=== PATIENT | female | born 1965 | race Caucasian/White ===

== ENCOUNTER → 2016-10-18 | Outpatient (REF) | payer OTHER ==
[~2016-10-18] MED LIST: ATOR1TAB18 PO; BACL-67 PO; DOCU10CA PO; GABA600T PO; MAGN250T3 PO; MILKSUS PO; MIRA3350 PO; NORC10TA2 PO; NORT50CA PO; OMEP20CA3 PO; PAME25CA PO; PERC5TAB6 PO; VARE05TA PO; VITA50003 PO
[2016-10-18 11:53] LABS: ALBUMIN 3.5 GM/DL (3.2-5.2); ALBUMIN/GLOBULIN RATIO 1.13 (1.00-1.93); ALKALINE PHOSPHATASE 85 U/L (45-117); ALT/SGPT 68 U/L (12-78); ANION GAP 8 MEQ/L (8-16); AST/SGOT 31 U/L (15-37); BILIRUBIN,TOTAL 0.3 MG/DL (0.2-1.0); BLOOD UREA NITROGEN 11 MG/DL (7-18); CARBON DIOXIDE LEVEL 29 MEQ/L (21-32); CHLORIDE LEVEL 105 MEQ/L (98-107); CHOLESTEROL LEVEL 269 MG/DL (<200); CREATININE FOR GFR 0.64 MG/DL (0.55-1.02); GLOMERULAR FILTRATION RATE > 60.0 (>58); GLUCOSE, FASTING 84 MG/DL (70-105); POTASSIUM SERUM 4.3 MEQ/L (3.5-5.1); SODIUM LEVEL 142 MEQ/L (136-145); TOTAL PROTEIN 6.6 GM/DL (6.4-8.2); TRIGLYCERIDES LEVEL 238 MG/DL (<150)
== END ==
LOC: M SFHCPLAZ 08:35
PROVIDERS: ATTEND Nurse Practitioner Family
DX: E78.2 Mixed hyperlipidemia (principal); E55.9 Vitamin D deficiency, unspecified

== ENCOUNTER → 2016-11-24 | Outpatient (CLI) | payer OTHER ==
--- NOTE | 2016-11-24 15:22 | REP ---
MR CERVICAL SPINE WITHOUT CONTRAST: HISTORY: Cervicalgia. COMPARISON: 09/19/2014. A disc bulge is present at the C3-4 level. There is minimal effacement of the thecal sac without spinal cord compression. Uncinate process hypertrophy is present on the left. This produces minimal narrowing of the left C3 neural foramen. The right C3 neural foramen is patent. A disc bulge is present at the C4-5 level. The previously noted left paracentral disc protrusion is not seen. There is minimal effacement of the thecal sac without spinal cord compressions. Uncinate process hypertrophy is present on the left. This produces minimal narrowing of the left C4 neural foramen. The right C4 neural foramen is patent. There is no other disc bulge or herniation. The remaining neural foramina are patent. The spinal cord is normal in signal intensity. Normal signal intensity is present in the cervical vertebral bodies. IMPRESSION: There is cervical spondylosis at the C3-4 and C4-5 levels without spinal cord compression. There is no significant change compared to the previous study. Signed by Kip Ramos MD 11/24/2016 03:27 P
== END ==
LOC: M RAD 13:28
PROVIDERS: ATTEND Physician Assistant Medical
DX: M54.2 Cervicalgia (principal); M47.892 Other spondylosis, cervical region

== ENCOUNTER → 2017-04-06 | Outpatient (CLI) | payer OTHER ==
[~2017-04-06] MED LIST changes: -ATOR1TAB18 PO; +ATOR80TA59 PO; -BACL-67 PO; +BACL1TAB9 PO; -NORC10TA2 PO; +NORC10TA21 PO; +PERC5TAB12 PO; -PERC5TAB6 PO; +VITA1CAP40 PO; -VITA50003 PO
[2017-04-06 10:14] LABS: BASO % 0.5 % (0.0-1.0); EOS # 0.4 K/mm3 (0.0-0.50); EOS % 3.9 % (0.0-3.0); LARGE UNSTAINED CELL # 0.1 K/mm3 (0.0-0.4); LARGE UNSTAINED CELL % 1.1 % (0.0-4.0); LYMPH # 1.8 K/mm3 (1.5-4.5); LYMPH % 17.1 % (24.0-44.0); MEAN CORPUSCULAR HEMOGLOBIN 32.4 pg (27.0-33.0); MEAN CORPUSCULAR HGB CONC 34.3 g/dl (32.0-36.5); MEAN CORPUSCULAR VOLUME 94.3 fl (80.0-96.0); MONO # 0.4 K/mm3 (0.0-0.8); MONO % 4.1 % (0.0-5.0); NEUTROPHILS # 7.6 K/mm3 (1.8-7.7); NEUTROPHILS % 73.3 % (36.0-66.0); PLATELET COUNT, AUTOMATED 385 k/mm3 (150-450); RED CELL DISTRIBUTION WIDTH 12.8 % (11.5-14.5); WHITE BLOOD COUNT 10.4 K/mm3 (4.0-10.0)
[2017-04-06 11:06] LABS: ERYTHROCYTE SEDIMENTATION RATE 3 mm/hr (0-20)
[2017-04-08 00:06] LABS: Lyme Disease IgG/IgM Antibodie <0.91 ISR (0.00-0.90); Lyme Disease IgM Ab Quantitati <0.80 index (0.00-0.79)
== END ==
LOC: M LAB 08:31
PROVIDERS: ATTEND Physician Assistant Medical
DX: R51 Headache (principal); M25.50 Pain in unspecified joint

== ENCOUNTER → 2017-04-26 | Outpatient (REF) | payer OTHER ==
[2017-04-26 12:19] LABS: ALBUMIN 3.6 GM/DL (3.2-5.2); ALBUMIN/GLOBULIN RATIO 1.24 (1.00-1.93); ALKALINE PHOSPHATASE 117 U/L (45-117); ALT/SGPT 109 U/L (12-78); ANION GAP 4 MEQ/L (8-16); AST/SGOT 17 U/L (15-37); BILIRUBIN,TOTAL 0.3 MG/DL (0.2-1.0); BLOOD UREA NITROGEN 9 MG/DL (7-18); CALCIUM LEVEL 8.6 MG/DL (8.5-10.1); CARBON DIOXIDE LEVEL 28 MEQ/L (21-32); CHLORIDE LEVEL 109 MEQ/L (98-107); CHOLESTEROL LEVEL 124 MG/DL (<200); CREATININE FOR GFR 0.69 MG/DL (0.55-1.02); GLOMERULAR FILTRATION RATE > 60.0 (>58); GLUCOSE, FASTING 86 MG/DL (70-105); POTASSIUM SERUM 4.4 MEQ/L (3.5-5.1); SODIUM LEVEL 141 MEQ/L (136-145); TOTAL PROTEIN 6.5 GM/DL (6.4-8.2); TRIGLYCERIDES LEVEL 84 MG/DL (<150)
== END ==
LOC: M SFHCPLAZ 08:39
PROVIDERS: ATTEND Nurse Practitioner Family
DX: E78.2 Mixed hyperlipidemia (principal); Z11.59 Encounter for screening for other viral diseases; Z11.4 Encounter for screening for human immunodeficiency virus [HIV]; W57.XXXD Bitten or stung by nonvenomous insect and other nonvenomous arthropods, subsequent encounter; E55.9 Vitamin D deficiency, unspecified

== ENCOUNTER → 2017-06-19 | Outpatient (REF) | payer OTHER ==
[2017-06-19 12:31] LABS: BASO # 0.1 10^3/uL (0.0-0.2); BASO % 0.6 % (0.0-1.0); EOS # 0.8 10^3/uL (0.0-0.50); EOS % 5.6 % (0.0-3.0); IMMATURE GRANULOCYTE % 0.3 % (0-0); LYMPH # 3.7 10^3/uL (1.5-4.5); LYMPH % 25.3 % (24.0-44.0); MEAN CORPUSCULAR HEMOGLOBIN 31.7 pg (27.0-33.0); MEAN CORPUSCULAR HGB CONC 33.9 g/dl (32.0-36.5); MEAN CORPUSCULAR VOLUME 93.6 fl (80.0-96.0); MONO # 0.9 10^3/uL (0.0-0.8); MONO % 6.5 % (0.0-5.0); NEUTROPHILS # 8.9 10^3/uL (1.8-7.7); NEUTROPHILS % 61.7 % (36.0-66.0); PLATELET COUNT, AUTOMATED 446 10^3/uL (150-450); WHITE BLOOD COUNT 14.4 10^3/uL (4.0-10.0)
[2017-06-19 13:06] LABS: ALBUMIN 3.5 GM/DL (3.2-5.2); ALBUMIN/GLOBULIN RATIO 1.09 (1.00-1.93); ALKALINE PHOSPHATASE 145 U/L (45-117); ALT/SGPT 183 U/L (12-78); ANION GAP 8 MEQ/L (8-16); AST/SGOT 21 U/L (7-37); BILIRUBIN,TOTAL 0.2 MG/DL (0.2-1.0); BLOOD UREA NITROGEN 8 MG/DL (7-18); CALCIUM LEVEL 9.3 MG/DL (8.5-10.1); CARBON DIOXIDE LEVEL 29 MEQ/L (21-32); CHLORIDE LEVEL 106 MEQ/L (98-107); CHOLESTEROL LEVEL 187 MG/DL (<200); CREATININE FOR GFR 0.66 MG/DL (0.55-1.02); GLOMERULAR FILTRATION RATE > 60.0 (>58); GLUCOSE, FASTING 86 MG/DL (70-105); SODIUM LEVEL 143 MEQ/L (136-145); TOTAL PROTEIN 6.7 GM/DL (6.4-8.2); TRIGLYCERIDES LEVEL 218 MG/DL (<150)
== END ==
LOC: M SFHCPLAZ 09:15
PROVIDERS: ATTEND Nurse Practitioner Family
DX: R40.0 Somnolence (principal); E78.2 Mixed hyperlipidemia; E55.9 Vitamin D deficiency, unspecified

== ENCOUNTER → 2017-06-28 | Outpatient (REF) | payer OTHER ==
[2017-06-28 11:28] LABS: BASO # 0.1 10^3/uL (0.0-0.2); BASO % 0.8 % (0.0-1.0); EOS # 0.5 10^3/uL (0.0-0.50); EOS % 4.1 % (0.0-3.0); IMMATURE GRANULOCYTE % 0.4 % (0-0); LYMPH # 3.5 10^3/uL (1.5-4.5); LYMPH % 29.8 % (24.0-44.0); MEAN CORPUSCULAR HEMOGLOBIN 31.4 pg (27.0-33.0); MEAN CORPUSCULAR VOLUME 95.1 fl (80.0-96.0); MONO # 0.8 10^3/uL (0.0-0.8); MONO % 7.1 % (0.0-5.0); NEUTROPHILS # 6.7 10^3/uL (1.8-7.7); NEUTROPHILS % 57.8 % (36.0-66.0); PLATELET COUNT, AUTOMATED 379 10^3/uL (150-450); RED CELL DISTRIBUTION WIDTH 14.1 % (11.5-14.5); WHITE BLOOD COUNT 11.6 10^3/uL (4.0-10.0)
[2017-06-28 11:42] LABS: ALBUMIN 3.6 GM/DL (3.2-5.2); ALBUMIN/GLOBULIN RATIO 1.24 (1.00-1.93); ALKALINE PHOSPHATASE 109 U/L (45-117); ALT/SGPT 60 U/L (12-78); AST/SGOT 16 U/L (7-37); BILIRUBIN,DIRECT < 0.1 MG/DL (0.0-0.2); BILIRUBIN,TOTAL 0.3 MG/DL (0.2-1.0); TOTAL PROTEIN 6.5 GM/DL (6.4-8.2)
[2017-06-28 11:54] LABS: ERYTHROCYTE SEDIMENTATION RATE 3 mm/hr (0-20)
== END ==
LOC: M SFHCLERA 08:31
PROVIDERS: ATTEND Nurse Practitioner Family
DX: G44.89 Other headache syndrome (principal); R79.89 Other specified abnormal findings of blood chemistry

== ENCOUNTER → 2018-05-13 | Outpatient (REF) | payer OTHER ==
[2018-05-13 12:49] LABS: ALBUMIN 3.2 GM/DL (3.2-5.2); ALBUMIN/GLOBULIN RATIO 1.07 (1.00-1.93); ALKALINE PHOSPHATASE 87 U/L (45-117); ALT/SGPT 43 U/L (12-78); ANION GAP 7 MEQ/L (8-16); AST/SGOT 17 U/L (7-37); BILIRUBIN,TOTAL 0.3 MG/DL (0.2-1.0); BLOOD UREA NITROGEN 8 MG/DL (7-18); CALCIUM LEVEL 8.5 MG/DL (8.5-10.1); CARBON DIOXIDE LEVEL 27 MEQ/L (21-32); CHLORIDE LEVEL 109 MEQ/L (98-107); CHOLESTEROL LEVEL 263 MG/DL (<200); CHOLESTEROL RISK RATIO 5.479 (<5); CREATININE FOR GFR 0.75 MG/DL (0.55-1.30); GLOMERULAR FILTRATION RATE > 60.0 (>51); GLUCOSE, FASTING 81 MG/DL (70-100); HDL CHOLESTEROL 48 MG/DL (>40); LDL CHOLESTEROL 192 MG/DL (<100); NON-HDL-C 215 MG/DL; POTASSIUM SERUM 4.4 MEQ/L (3.5-5.1); SODIUM LEVEL 143 MEQ/L (136-145); TOTAL PROTEIN 6.2 GM/DL (6.4-8.2); TRIGLYCERIDES LEVEL 114 MG/DL (<150)
== END ==
LOC: M SFHCPLAZ 08:00
DX: E78.2 Mixed hyperlipidemia (principal); E55.9 Vitamin D deficiency, unspecified
CPT/HCPCS: 80053

== ENCOUNTER → 2018-10-25 | Outpatient (CLI) | payer OTHER ==
[~2018-10-25] MED LIST changes: -GABA600T PO; +GABA600T4 PO; +MILK120011 PO; -MILKSUS PO; -NORC10TA21 PO; +NORC1TAB5 PO; -VITA1CAP40 PO; +VITA50005 PO
--- NOTE | 2018-10-25 14:14 | REP ---
MR CERVICAL SPINE WITHOUT CONTRAST: HISTORY: Cervicalgia. COMPARISON: 11/24/2016 A disc bulge and small left paracentral disc protrusion are present at the C3-4 level. There is minimal effacement of the thecal sac without spinal cord compression. Uncinate process hypertrophy is present on the left. This produces minimal narrowing of the left C3 neural foramen. The right C3 neural foramen is patent. A disc bulge and small left paracentral disc protrusion are present at the C4-5 level. There is minimal effacement of the thecal sac without spinal cord compression. Uncinate process hypertrophy is present on the left. This produces mild narrowing of the left C4 neural foramen. The right C4 neural foramen is patent. There is no other disc bulge or herniation. The remaining foramen are patent. The spinal cord is normal in signal intensity. Normal signal intensity is present in the cervical vertebral bodies. IMPRESSION: There is cervical spondylosis at the C3-4 and C4-5 levels without spinal cord compression. The disc protrusions at the C3-4 and C4-5 levels are new. There has been progression of the foraminal narrowing on the left at the C4-5 level. Electronically Signed by Kip Ramos MD 10/25/2018 02:44 P
== END ==
LOC: M PLARAD 10:28
PROVIDERS: ATTEND Physician Assistant Medical
DX: M50.21 Other cervical disc displacement, high cervical region (principal); M50.221 Other cervical disc displacement at C4-C5 level; M47.892 Other spondylosis, cervical region; R20.2 Paresthesia of skin

== ENCOUNTER → 2019-02-27 | Outpatient (REF) | payer OTHER ==
[~2019-02-27] MED LIST changes: -OMEP20CA3 PO; +OMEP20CA4 PO
[2019-03-01 14:10] LABS: HPV HYBRID CAPTURE II Negative (Negative)
== END ==
LOC: M SFHCWAGY 11:46
PROVIDERS: ATTEND Nurse Practitioner Women's Health
DX: Z12.4 Encounter for screening for malignant neoplasm of cervix (principal)

== ENCOUNTER → 2019-02-27 | Outpatient (CLI) | payer OTHER ==
--- NOTE | 2019-02-27 13:27 | REPMRS ---
Patient History The patient states she had a clinical breast exam in 02/2019. Patient has history of other cancer at age 50. No known family history of cancer. No Hormone Replacement Therapy 3D TOMOSYNTHESIS WAS PERFORMED. [facility] lifetime risk for breast cancer is 8.5%. Digital Woman Screen Mammo: February 27, 2019 - Exam #: [id number] Bilateral CC and MLO view(s) were taken. Technologist: Alana Lorenzana, Technologist Prior study comparison: May 25, 2016, digital woman screen mammo performed at [facility]. March 27, 2014, digital mammo diagnostic bilateral, performed at [facility]. FINDINGS: The breast tissue is heterogeneously dense. This may lower the sensitivity of mammography. There has been no change in the appearance of the mammogram from the prior studies. There is a moderate amount of residual fibroglandular tissue which is fairly symmetric. There is no interval development of dominant mass, areas of architectural distortion, or clustered microcalcification typical of malignancy. Assessment: BI-RADS/ACR category 1 mammogram. Negative Mammogram. Recommendation Routine screening mammogram in 1 year (for women over age 40). This mammogram was interpreted with the aid of an FDA-approved computer-aided dectection system. Electronically Signed By: Floyd Magana MD 02/27/19 [id number]
== END ==
LOC: M WHC 11:41
PROVIDERS: ATTEND Nurse Practitioner Women's Health
DX: Z12.31 Encounter for screening mammogram for malignant neoplasm of breast (principal); Z85.89 Personal history of malignant neoplasm of other organs and systems

== ENCOUNTER → 2020-01-14 | Outpatient (REF) | payer OTHER ==
[~2020-01-14] MED LIST changes: +CIPR-249 PO; +DRIS50003 PO; +FLAG500T PO; +GABA800T4 PO; +METH750T2 PO; +NEUR800T PO; +OMEP1CAP73 PO; -OMEP20CA4 PO; +SUMA50TA2 PO
[2020-01-14 15:36] LABS: ALBUMIN 3.8 GM/DL (3.2-5.2); ALT/SGPT 42 U/L (12-78); BILIRUBIN,TOTAL 0.3 MG/DL (0.2-1.0); BLOOD UREA NITROGEN 7 MG/DL (7-18); CALCIUM LEVEL 9.6 MG/DL (8.5-10.1); CARBON DIOXIDE LEVEL 29 MEQ/L (21-32); CHLORIDE LEVEL 107 MEQ/L (98-107); CHOLESTEROL LEVEL 310 MG/DL (<200); CREATININE FOR GFR 0.75 MG/DL (0.55-1.30); FREE T4 0.88 NG/DL (0.76-1.46); GLOMERULAR FILTRATION RATE > 60.0 (>51); GLUCOSE, FASTING 81 MG/DL (70-100); HDL CHOLESTEROL 50 MG/DL (>40); LDL CHOLESTEROL 227 MG/DL (<100); MAGNESIUM LEVEL 2.1 MG/DL (1.8-2.4); NON-HDL-C 260 MG/DL; POTASSIUM SERUM 4.4 MEQ/L (3.5-5.1); SODIUM LEVEL 139 MEQ/L (136-145); THYROID STIMULATING HORMONE 0.914 uIU/ML (0.358-3.740); TOTAL 25(OH) VITAMIN D 23.1 NG/ML (30.0-100.0); TOTAL PROTEIN 6.9 GM/DL (6.4-8.2); TRIGLYCERIDES LEVEL 167 MG/DL (<150)
== END ==
LOC: M SFHCPLAZ 12:45
PROVIDERS: ATTEND Nurse Practitioner Family
DX: E78.2 Mixed hyperlipidemia (principal); K21.9 Gastro-esophageal reflux disease without esophagitis; E55.9 Vitamin D deficiency, unspecified

== ENCOUNTER 2020-03-02 12:57 | Emergency (ER) | payer OTHER ==
[~2020-03-02 12:57] MED LIST changes: -CIPR-249 PO; -DRIS50003 PO; -FLAG500T PO; -GABA800T4 PO; -METH750T2 PO; -NEUR800T PO; -SUMA50TA2 PO
[2020-04-17 07:49] LABS: BASO % 0.4 % (0.0-1.0); EOS # 0.4 10^3/uL (0.0-0.5); HEMATOCRIT 50.2 % (36.0-47.0); HEMOGLOBIN 16.8 g/dl (12.0-15.5); LYMPH # 3.6 10^3/uL (1.5-5.0); LYMPH % 34.4 % (24.0-44.0); MEAN CORPUSCULAR HEMOGLOBIN 31.4 pg (27.0-33.0); MEAN CORPUSCULAR HGB CONC 33.5 g/dl (32.0-36.5); MEAN CORPUSCULAR VOLUME 93.8 fl (80.0-96.0); MONO # 0.6 10^3/uL (0.0-0.8); NEUTROPHILS # 5.8 10^3/uL (1.5-8.5); NEUTROPHILS % 54.9 % (36.0-66.0); PLATELET COUNT, AUTOMATED 349 10^3/uL (150-450); RED BLOOD COUNT 5.35 10^6/uL (4.00-5.40); WHITE BLOOD COUNT 10.5 10^3/uL (4.0-10.0)
[2020-04-17 07:52] LABS: INR 0.91; PARTIAL THROMBOPLASTIN TIME 36.3 SECONDS (24.2-38.5); PROTHROMBIN TIME 12.4 SECONDS (12.5-14.3)
== END 2020-03-02 16:40 | disposition home or self-care (01) ==
LOC: M ED 12:57
DX: M17.11 Unilateral primary osteoarthritis, right knee (principal); M71.21 Synovial cyst of popliteal space [Baker], right knee; K21.9 Gastro-esophageal reflux disease without esophagitis; F17.210 Nicotine dependence, cigarettes, uncomplicated; Z88.1 Allergy status to other antibiotic agents; Z79.899 Other long term (current) drug therapy

== ENCOUNTER → 2020-03-02 | Outpatient (REF) | payer OTHER | LOC: M SFHCWAGY 11:32 | PROVIDERS: ATTEND Nurse Practitioner Women's Health | DX: Z12.4 Encounter for screening for malignant neoplasm of cervix (principal) ==

== ENCOUNTER → 2020-03-02 | Outpatient (CLI) | payer OTHER ==
--- NOTE | 2020-03-18 16:59 | REPMRS ---
Patient History The patient states she had a clinical breast exam in 02/2020. Patient has history of other cancer at age 50. No known family history of cancer. No Hormone Replacement Therapy Digital Woman Screen Mammo: March 02, 2020 - Exam #: [id number] Bilateral CC and MLO view(s) were taken. Technologist: Kaylen Mcbride Technologist Prior study comparison: February 27, 2019, bilateral digital woman screen mammo performed at [facility]. May 25, 2016, digital woman screen mammo performed at [facility]. March 27, 2014, digital mammo diagnostic bilateral, performed at [facility]. FINDINGS: The breast tissue is heterogeneously dense. This may lower the sensitivity of mammography. The Volpara volumetric breast density category is: C. There is a moderate amount of heterogeneously dense fibroglandular tissue which is fairly symmetric. There is no interval development of dominant mass, architectural distortion, or grouped microcalcification typical of malignancy. There has been no change in the appearance of the mammogram from the prior studies. 3-D tomosynthesis shows no additional findings. Assessment: BI-RADS/ACR category 1 mammogram. Negative Mammogram. Recommendation Routine screening mammogram of both breasts in 1 year (for women over age 40). This patient's Lifetime Breast Cancer RIsk is estimated at 8.3 %. This mammogram was interpreted with the aid of an FDA-approved computer-aided dectection system. Electronically Signed By: Ramón Major MD 03/18/20 [id number]
== END ==
LOC: M WHC 11:17
PROVIDERS: ATTEND Nurse Practitioner Women's Health
DX: Z12.31 Encounter for screening mammogram for malignant neoplasm of breast (principal)

== ENCOUNTER → 2020-03-12 | Outpatient (CLI) | payer OTHER ==
[~2020-03-12] MED LIST changes: +CIPR-249 PO; +DRIS50003 PO; +FLAG500T PO; +GABA800T4 PO; +METH750T2 PO; +NEUR800T PO; +SUMA50TA2 PO
== END ==
LOC: M LABSMTC 13:30
PROVIDERS: ATTEND Anesthesiology
DX: Z01.812 Encounter for preprocedural laboratory examination (principal); Z11.59 Encounter for screening for other viral diseases

== ENCOUNTER 2020-03-17 11:47 | Day surgery (SDC) | payer OTHER ==
[~2020-03-17] VITALS: Ht 175.3 cm; Wt 102.4 kg
[~2020-03-17 11:47] MED LIST changes: -CIPR-249 PO; -DRIS50003 PO; -FLAG500T PO; -GABA800T4 PO; +LIDOCAINE 2% 100MG/5ML SDV (FOR ANES.) As Ordered ONE; -METH750T2 PO; -NEUR800T PO; -SUMA50TA2 PO; +propofoL 200 MG/20 ML VIAL As Ordered ONE
[2020-03-17] MEDS ORDERED: NS 1,000 ML IV ONE (13:00)
[2020-03-17 13:30] VITALS: BP 130/89
--- NOTE | 2020-03-31 11:36 | ROOR ---
Patient Name: Jyoti Alcala Procedure Date: 03/17/2020 12:48 PM Date of : 1965 Age: 54 Room: [facility] Gender: Female Note Status: Finalized Procedure: Total Colonoscopy to Cecum Indications: High risk colon cancer surveillance: Personal history of colonic polyps Providers: Sudhakar Lackey MD Referring MD: Shanon Aguirre NP Requesting Provider: Medicines: Monitored Anesthesia Care Complications: No immediate complications. Procedure: Pre-Anesthesia Assessment: - The heart rate, respiratory rate, oxygen saturations, blood pressure, adequacy of pulmonary ventilation, and response to care were monitored throughout the procedure. The Colonoscope was introduced through the anus and advanced to the cecum, identified by appendiceal orifice and ileocecal valve. The colonoscopy was performed without difficulty. The patient tolerated the procedure well. The quality of the bowel preparation was good. Findings: The perianal and digital rectal examinations were normal. Non-bleeding internal hemorrhoids were found during retroflexion. The hemorrhoids were small and Grade I (internal hemorrhoids that do not prolapse). Multiple small and large-mouthed diverticula were found in the recto-sigmoid colon, sigmoid colon and descending colon. The exam was otherwise without abnormality on direct and retroflexion views. Impression: - Non-bleeding internal hemorrhoids. - Diverticulosis in the recto-sigmoid colon, in the sigmoid colon and in the descending colon. - The examination was otherwise normal on direct and retroflexion views. - No specimens collected. - The exam was otherwise normal to the cecum. Recommendation: - Patient has a contact number available for emergencies. The signs and symptoms of potential delayed complications were discussed with the patient. Return to normal activities tomorrow. Written discharge instructions were provided to the patient. - High fiber diet. - Discharge patient to home. - Continue present medications. - Repeat colonoscopy in 5 years for surveillance. - Return to referring physician. - The findings and recommendations were discussed with the patient. Sudhakar Lackey MD 03/17/2020 1:10:53 PM Number of Addenda: 0 Note Initiated On: 03/17/2020 12:48 PM Estimated Blood Loss: Estimated blood loss: none.
== END 2020-03-17 13:52 | disposition home or self-care (01) ==
LOC: M OPP 11:47
PROVIDERS: ATTEND Internal Medicine Gastroenterology
DX: Z12.11 Encounter for screening for malignant neoplasm of colon (principal); Z86.010 Personal history of colon polyps; K64.0 First degree hemorrhoids; K57.30 Diverticulosis of large intestine without perforation or abscess without bleeding; G47.30 Sleep apnea, unspecified; F17.210 Nicotine dependence, cigarettes, uncomplicated; Z79.899 Other long term (current) drug therapy; Z88.1 Allergy status to other antibiotic agents; Z88.8 Allergy status to other drugs, medicaments and biological substances; Z91.048 Other nonmedicinal substance allergy status

== ENCOUNTER → 2020-05-13 | Outpatient (REF) | payer OTHER ==
[~2020-05-13] MED LIST changes: +CIPR-249 PO; +DRIS50003 PO; +FLAG500T PO; +GABA800T4 PO; -LIDOCAINE 2% 100MG/5ML SDV (FOR ANES.) As Ordered ONE; +METH750T2 PO; +NEUR800T PO; +SUMA50TA2 PO; -propofoL 200 MG/20 ML VIAL As Ordered ONE
[2020-05-13 13:38] LABS: APPEARANCE, URINE CLEAR (CLEAR); BACTERIA, URINE AUTO NEGATIVE (NEGATIVE); BILIRUBIN, URINE AUTO NEGATIVE (NEGATIVE); BLOOD, URINE BLOOD 3+ (NEGATIVE); COLOR, URINE STRAW (YELLOW); GLUCOSE, URINE (UA) AUTO NEGATIVE (NEGATIVE); KETONE, URINE AUTO NEGATIVE (NEGATIVE); LEUKOCYTE ESTERASE, URINE AUTO TRACE (NEGATIVE); NITRITE, URINE AUTO NEGATIVE (NEGATIVE); PROTEIN, URINE AUTO NEGATIVE (NEGATIVE); RBC, URINE AUTO 7 /HPF (0-3); SPECIFIC GRAVITY URINE AUTO 1.002 (1.002-1.035); SQUAMOUS EPITHELIAL CELL UR AU 0 /HPF (0-6); UROBILINOGEN, URINE AUTO 0.2 mg/dL (0.0-2.0); WBC, URINE AUTO 4 /HPF (0-3)
== END ==
LOC: M SFHCPLAZ 12:50
PROVIDERS: ATTEND Family Medicine
DX: R30.0 Dysuria (principal)

== ENCOUNTER → 2020-05-14 | Outpatient (REF) | payer OTHER ==
[2020-05-14 18:56] LABS: AMORPHOUS SEDIMENT SMALL (NEGATIVE); APPEARANCE, URINE CLOUDY (CLEAR); BACTERIA, URINE AUTO NEGATIVE (NEGATIVE); BILIRUBIN, URINE AUTO NEGATIVE (NEGATIVE); BLOOD, URINE BLOOD 2+ (NEGATIVE); CALCIUM OXALATE CRYSTALS MODERATE; COLOR, URINE YELLOW (YELLOW); GLUCOSE, URINE (UA) AUTO NEGATIVE (NEGATIVE); KETONE, URINE AUTO TRACE mg/dL (NEGATIVE); LEUKOCYTE ESTERASE, URINE AUTO 3+ (NEGATIVE); MUCUS, URINE SMALL (NEGATIVE); NITRITE, URINE AUTO NEGATIVE (NEGATIVE); PROTEIN, URINE AUTO 2+ mg/dL (NEGATIVE); RBC, URINE AUTO TNTC /HPF (0-3); SPECIFIC GRAVITY URINE AUTO 1.021 (1.002-1.035); SQUAMOUS EPITHELIAL CELL UR AU 1 /HPF (0-6); UROBILINOGEN, URINE AUTO 0.2 mg/dL (0.0-2.0); WBC, URINE AUTO 40 /HPF (0-3)
== END ==
LOC: M SMT 17:29
PROVIDERS: ATTEND Nurse Practitioner Women's Health
DX: R30.0 Dysuria (principal)

== ENCOUNTER 2020-05-24 12:08 | Emergency (ER) | payer OTHER ==
[~2020-05-24] VITALS: Ht 175.3 cm; Wt 101.0 kg
[~2020-05-24 12:08] MED LIST changes: -CIPR-249 PO; -DRIS50003 PO; -FLAG500T PO; -GABA800T4 PO; -METH750T2 PO; -NEUR800T PO; -SUMA50TA2 PO
[2020-05-24] MEDS ORDERED: METH750T2 PO (12:16)
[2020-05-24] MEDS ORDERED: KETOROLAC 30 MG/ML 1ML VIAL IV ONE (13:15)
--- NOTE | 2020-05-24 13:37 | REP ---
INDICATION: left pelvic pain; hx of stone COMPARISON: Comparison CT study abdomen pelvis October 08, 2014.. TECHNIQUE: Helical scanning is acquired in 4 mm axial images were reformatted. Coronal and sagittal MPR images were generated and reviewed. FINDINGS: Preliminary digital microfilm camera operator radiograph shows clips in right upper quadrant. Bowel gas pattern is normal. There appears to be a surgical suture in the pelvis on the right side as well. The lung bases are clear on axial CT images. The liver and the spleen are normal in size homogeneous in texture. There is a stable low-density left adrenal lesion measuring 2.9 cm in greatest diameter. This measured 2.4 cm in 2015. No right adrenal lesion is seen. The left adrenal lesion has a mean Hounsfield unit density of -18 Hounsfield units consistent with benign adenoma. There is mild left-sided hydronephrosis and hydroureter. No ureteral or intrarenal calculus is seen on either side. No bladder calculus is observed. Vascular calcification is noted in the iliac arteries bilaterally. No retroperitoneal mass or adenopathy is seen. There is sigmoid colon diverticulosis in there is mural thickening and Bernie colonic edema associated with the sigmoid colon deep in the left pelvis. This is compatible with acute diverticulitis. There is no evidence of abscess or free air. The course of the left distal ureter is near this and no other cause for the hydronephrosis is seen. Uterus is tipped somewhat to the right. No ovarian abnormality is seen. Urinary bladder is intact. No abdominal wall defect or bony destructive lesion is appreciated. IMPRESSION: 1. Findings consistent with acute mild diverticulitis sigmoid colon without evidence of abscess or free air. 2. Mild left-sided hydronephrosis and hydroureter. No ureteral calculus seen. No urinary tract calculus noted. 3. Post cholecystectomy and ventral hernia repair. 4. There is a benign left adrenal adenoma currently measuring 2.9 cm in greatest diameter. 5. The appendix and right ovary are surgically absent by history. <Electronically signed by Ramón Major > 05/24/20 [id number]
[2020-05-24 13:39] LABS: BASO # 0.1 10^3/uL (0.0-0.2); BASO % 0.5 % (0.0-1.0); EOS # 0.5 10^3/uL (0.0-0.5); HEMATOCRIT 47.5 % (36.0-47.0); HEMOGLOBIN 15.2 g/dl (12.0-15.5); LYMPH # 3.4 10^3/uL (1.5-5.0); LYMPH % 25.5 % (24.0-44.0); MEAN CORPUSCULAR HEMOGLOBIN 30.2 pg (27.0-33.0); MEAN CORPUSCULAR VOLUME 94.2 fl (80.0-96.0); MONO # 0.8 10^3/uL (0.0-0.8); MONO % 6.2 % (0.0-5.0); NEUTROPHILS # 8.5 10^3/uL (1.5-8.5); NEUTROPHILS % 63.5 % (36.0-66.0); PLATELET COUNT, AUTOMATED 288 10^3/uL (150-450); RED BLOOD COUNT 5.04 10^6/uL (4.00-5.40); WHITE BLOOD COUNT 13.3 10^3/uL (4.0-10.0)
[2020-05-24] MEDS ORDERED: CIPR-249 PO (15:01)
[2020-05-24] MEDS ORDERED: FLAG500T PO (15:01)
[2020-05-24 15:17] VITALS: BP 110/70
[2020-05-24 15:32] LABS: BLOOD UREA NITROGEN 9 MG/DL (7-18); CALCIUM LEVEL 9.1 MG/DL (8.5-10.1); CARBON DIOXIDE LEVEL 28 MEQ/L (21-32); CHLORIDE LEVEL 109 MEQ/L (98-107); CREATININE FOR GFR 0.69 MG/DL (0.55-1.30); GLOMERULAR FILTRATION RATE > 60.0 (>51); GLUCOSE, FASTING 78 MG/DL (70-100); POTASSIUM SERUM 4.6 MEQ/L (3.5-5.1); SODIUM LEVEL 143 MEQ/L (136-145)
== END 2020-05-24 15:19 | disposition home or self-care (01) ==
LOC: M ED 12:08
DX: K57.32 Diverticulitis of large intestine without perforation or abscess without bleeding (principal); N13.30 Unspecified hydronephrosis; D35.02 Benign neoplasm of left adrenal gland; M79.7 Fibromyalgia; F17.200 Nicotine dependence, unspecified, uncomplicated; Z88.1 Allergy status to other antibiotic agents; Z91.048 Other nonmedicinal substance allergy status; Z79.899 Other long term (current) drug therapy
CPT/HCPCS: 74176; 80047; 80048; 81001; 85025; 96374; 99284; J1885

== ENCOUNTER 2020-05-27 13:22 | Inpatient (IN) | payer OTHER ==
[~2020-05-27] VITALS: Ht 175.3 cm; Wt 100.7 kg
[~2020-05-27 13:22] MED LIST changes: +CIPR-249 PO; +FLAG500T PO; +METH750T2 PO
[2020-05-27] MEDS ORDERED: NS 1,000 ML IV ONE (14:15)
[2020-05-27 14:35] LABS: BASO # 0.1 10^3/uL (0.0-0.2); BASO % 0.5 % (0.0-1.0); EOS # 0.4 10^3/uL (0.0-0.5); EOS % 3.3 % (0.0-3.0); HEMATOCRIT 46.3 % (36.0-47.0); HEMOGLOBIN 15.2 g/dl (12.0-15.5); LYMPH # 2.6 10^3/uL (1.5-5.0); MEAN CORPUSCULAR HEMOGLOBIN 30.2 pg (27.0-33.0); MEAN CORPUSCULAR HGB CONC 32.8 g/dl (32.0-36.5); MEAN CORPUSCULAR VOLUME 91.9 fl (80.0-96.0); MONO # 0.9 10^3/uL (0.0-0.8); MONO % 7.4 % (0.0-5.0); NEUTROPHILS # 8.3 10^3/uL (1.5-8.5); NEUTROPHILS % 67.5 % (36.0-66.0); PLATELET COUNT, AUTOMATED 290 10^3/uL (150-450); RED BLOOD COUNT 5.04 10^6/uL (4.00-5.40); WHITE BLOOD COUNT 12.2 10^3/uL (4.0-10.0)
[2020-05-27] MEDS ORDERED: ISOVUE-370 76% 100ML VIAL As Ordered ONE (14:54)
[2020-05-27 15:11] LABS: ALBUMIN 3.4 GM/DL (3.2-5.2); ALT/SGPT 48 U/L (12-78); BILIRUBIN,DIRECT < 0.1 MG/DL (0.0-0.2); BILIRUBIN,TOTAL 0.5 MG/DL (0.2-1.0); LIPASE 353 U/L (73-393); TOTAL PROTEIN 6.9 GM/DL (6.4-8.2)
[2020-05-27 15:26] LABS: BLOOD UREA NITROGEN 8 MG/DL (7-18); CALCIUM LEVEL 9.2 MG/DL (8.5-10.1); CARBON DIOXIDE LEVEL 25 MEQ/L (21-32); CHLORIDE LEVEL 108 MEQ/L (98-107); CREATININE FOR GFR 0.71 MG/DL (0.55-1.30); GLOMERULAR FILTRATION RATE > 60.0 (>51); GLUCOSE, FASTING 87 MG/DL (70-100); POTASSIUM SERUM 5.1 MEQ/L (3.5-5.1); SODIUM LEVEL 140 MEQ/L (136-145)
--- NOTE | 2020-05-27 15:33 | REP ---
INDICATION: lower abd pain, diverticulitis dx 05/24/20, worsening sx's. COMPARISON: 05/24/2020 TECHNIQUE: Bolus of 100 mL Isovue 370 scanning through abdomen and pelvis with coronal and sagittal reconstructions. FINDINGS: CT abdomen: There are some minor dependent atelectatic changes with the lung maxwell stable. The heart, stomach liver, spleen and pancreas are unchanged clips from prior cholecystectomy seen. No hepatosplenomegaly or focal lesion. No ascites in the abdomen proper. Ventral hernia mesh again seen anteriorly. Stable left adrenal nodule previously shown to be an adrenal adenoma. Chest above the hernia mesh to left of midline is a 1.2 x 1.3 cm gap with some omental fat no bowel herniation. Colon shows moderate stool scattered in the right and transverse portion less in the left colon but no acute finding there. The small bowel loops fluid-filled and unremarkable. The aorta, retroperitoneum and kidneys unchanged. No pancreatic abnormality. Bones unchanged. The aorta is without aneurysm or dissection. CT pelvis: The small bowel loops are fluid-filled without wall thickening, mass or inflammatory change. Diverticulosis of the proximal left colon and in the sigmoid midportion there persists mid to distal mild inflammatory changes and diverticulosis representing some mild diverticulitis in the deep pelvis. This is stable. There is no perforation or abscess. Cecum unremarkable, appendix absent. No vascular abnormalities in the deep pelvic vessels. There is no inguinal hernia. The left ureter is mildly prominent unchanged. No stone seen within it. It courses past the region of the diverticulosis and diverticulitis. Bones are unchanged. IMPRESSION: 1. Mid to distal sigmoid diverticulitis without perforation or abscess there is some mild infiltration of fat of the diverticulosis adjacent. No abscess, trace fluid present. 2. Mild the left hydronephrosis and hydroureter without visible renal or ureteral stone, stable. 3. Fatty change in the liver with prior cholecystectomy and a stable left adrenal adenoma. No new findings or interval changes from 05/24/2020. 4. 13 x 12 mm gap to the left of midline with omental fat protruding, just above the level of the hernia mesh. No bowel herniation. <Electronically signed by Dontae Rey > 05/27/20 [id number]
[2020-05-27] MEDS ORDERED: PIPERACILLIN/TAZOBACTAM SOD 3.375 GM in D5W MINI-BAG PLUS 50 ML IV ONE (16:15)
--- NOTE | 2020-05-27 16:54 | HPEPDOC ---
[facility] Medical History & Physical Date of Admission May 27, 2020 Date of Service: May 27, 2020 Attending Physician: Rebeca Lai MD History and Physical CHIEF COMPLAINT: Lower abdominal pain HISTORY OF PRESENT ILLNESS: Agent is a 54-year-old female with past medical history of herniated lower discs of the back and neck, ANILA, hyperlipidemia, tobacco use, recent diagnosis on 05/24/20 of diverticulitis who presented to [facility] emergency room with worsening lower abdominal pain. The patient states her pain started 05/22/2020 with diffuse lower abdominal pain more so in the left lower quadrant initially. She thought this was gas pain as it was intermittent. As the days went on the patient developed worsening abdominal pain. She also struggles with constipation so she thought it was secondary to this as well. On 05/24/2020 the patient came to the emergency room and was diagnosed with diverticulitis, sent home with Jenny and Juan. The patient states her abdominal pain worsened despite being compliant with antibiotics. She was later instructed by her primary care doctor to come in again today to be assessed. She admits to having associated nausea, constipation, decreased appetite, decreased by mouth intake. She denies diarrhea, shortness of breath, chest pain, fevers or chills at home. Emergency room vital signs were stable. WBC 12.2. T of the abdomen and pelvis showed mid to distal sigmoid diverticulitis without perforation or abscess was some mild menstruation of fat on the diverticulosis adjacent. No abscess, trace fluid or pressure present. Mild left hydronephrosis and hydroureter without visible renal or ureteral stone. The case was discussed with general surgery wellness consultant who suggested admission under hospitalist service. The patient was admitted for acute sigmoid diverticulitis, failing outpatient treatment. REVIEW OF SYSTEMS: CONSTITUTIONAL: Deniesunexplained weight gain or weight loss, fever, night sweats EYES: Denies eye drainage, eye pain, visual changes, dry/irritated eye EARS, NOSE, MOUTH, THROAT: Denies difficulty hearing, ringing in ears, mouth sores, loose teeth, sore throat, facial numbness or pain NECK: Denies swollen glands CARDIOVASCULAR: Denies irregular heartbeat, racing heart, swelling of feet or legs, pain in legs with walking RESPIRATORY: Denies shortness of breath, night sweats, wheezing, sputum production, oxygen at home, coughing up blood, cough lasting > 1 month GASTROINTESTINAL: Denies a bloody stool, diarrhea, heartburn, vomiting GENITOURINARY: Denies bloody urine, frequent urination, leaking urine, impotence MUSCULOSKELETAL: Denies muscle pain, leg swelling INTEGUMENTARY: Denies rash, itching, new skin lesion, change in existing skin lesion, hair loss or increase, breast changes. NEUROLOGICAL: Denies headaches, dizziness, difficulty walking, numbness or tingling PSYCHIATRIC: Denies depression, anxiety, recurrent bad thoughts, mood swings, hallucinations PAST MEDICAL HISTORY: 1. Herniated disks in her lower back and neck 2. Muscle spasms 3. Hypoglycemia, associated with decreased oral intake 4. ANILA 5. HLD 6. Tobacco use PAST SURGICAL HISTORY: 1. Cholecystectomy 2. Appendectomy 3. Hernia repair 4. Right ovary removal 5. Uterine ablation 6. Deviated septum repair 7. Tonsillectomy FAMILY HISTORY: Father: CAD, COPD, asthma. at 67 y/o Mother: TIA, HTN. alive SOCIAL HISTORY: Tobacco smoker 1 pack per day for 40 years. Denies alcohol or illicit drug use outside of medical marijuana. She follows with neurology, Dr. Magaña's office. She lives with her in the local area. She is disabled. Full Code. ALLERGIES: Please see below. HOME MEDICATIONS: Please see below. PHYSICAL EXAMINATION: VS: Please see below CONSTITUTIONAL: Slightly uncomfortable from pain. AAO x 3 EYES: PERRLA, EOM intact HENT, MOUTH: Normocephalic, atraumatic, moist mucous membranes, NECK: SUPPLE, no JVD, no lymphadenopathy, no carotid bruit CV: Regular rate and rhythm, S1S2 normal, no murmurs/rubs/gallops RESPIRATORY: Clear to auscultation bilaterally, no rales/rhonchi/wheezes GI: obese abd, hyperactive bowel sounds, BS positive in 4 quadrants, soft, nondistended, no rebound or guarding, no organomegaly : Deferred MUSCULOSKELETAL: Normal ROM. No cyanosis, clubbing, swelling, joint deformity, extremity edema INTEGUMENTARY: Intact, no rashes, no lesions, no erythema NEUROLOGIC: Cranial Nerves II-XII are intact, no focal deficits PSYCHIATRIC: Mood and affect are normal LABORATORY DATA: Laboratory Tests 05/27/20 14:23 IMAGING: CT abd/pelvis: 1. Mid to distal sigmoid diverticulitis without perforation or abscess there is some mild infiltration of fat of the diverticulosis adjacent. No abscess, trace fluid present. 2. Mild the left hydronephrosis and hydroureter without visible renal or ureteral stone, stable. 3. Fatty change in the liver with prior cholecystectomy and a stable left adrenal adenoma. No new findings or interval changes from 05/24/2020. 4. 13 x 12 mm gap to the left of midline with omental fat protruding, just above the level of the hernia mesh. No bowel herniation. ASSESSMENT: 54-year-old female with past medical history of herniated lower discs of the back and neck, ANILA, hyperlipidemia, tobacco use, recent diagnosis on 06-11 of diverticulitis admitted for acute sigmoid diverticulitis, failing outpatient treatment. PLAN: 1. Acute sigmoid diverticulitis -WBC 12K, worsening abd pain. Failed oral abx -CT above -Case discussed with Dr. Nix, general surgery by ER provider -STarted on zosyn, NPO except ice chips and sips, toradol PRN -F/u daily CBC -Surgery consulted to follow 2. Mild left hydronephrosis and hydroureter -Cr wnl, no left flank pain -UA neg -At this time only monitor for changes 3. Fatty change in liver -BMI 32.5, Hx of HLD -Lifestyle changes 4. Chronic pain 2/2 to herniated lower back, cervical discs -C/w home gabapentin, nortriptyline -toradol PRN 5. ANILA -Can use home CPAP if has one 6. HLD -Not on statin 7. Left adrenal adenoma -stable since 05/24/20 -F/u with PCP 8. GERD -PPI 9. DVT px -Enoxaparin DISPOSITION: Admitted under inpatient status. Plan is discharge home when medically improved. Vital Signs Vital Signs Date Time Temp Pulse Resp B/P (MAP) Pulse Ox O2 Delivery O2 Flow Rate FiO2 05/27/20 16:45 98.3 71 17 131/79 (96) 96 Room Air Laboratory Data Labs 24H Laboratory Tests 2 05/27/20 14:22: Urine Color YELLOW, Urine Appearance CLEAR, Urine pH 5.0, Urine Specific [place] 1.016, Urine Protein NEGATIVE, Urine Glucose (UA) NEGATIVE, Urine Ketones NEGATIVE, Urine Blood NEGATIVE, Urine Nitrite NEGATIVE, Urine Bilirubin NEGATIVE, Urine Urobilinogen 0.2, Urine Leukocyte Esterase 1+H, Urine WBC (Auto) 1, Urine RBC (Auto) 1, Urine Hyaline Casts (Auto) 0, Urine Bacteria (Auto) NEGATIVE, Urine Squamous Epithelial Cells 1, Urine Sperm (Auto) 05/27/20 14:23: Immature Granulocyte % (Auto) 0.3, Neutrophils (%) (Auto) 67.5H, Lymphocytes (%) (Auto) 21.0L, Monocytes (%) (Auto) 7.4H, Eosinophils (%) (Auto) 3.3H, Basophils (%) (Auto) 0.5, Neutrophils # (Auto) 8.3, Lymphocytes # (Auto) 2.6, Monocytes # (Auto) 0.9H, Eosinophils # (Auto) 0.4, Basophils # (Auto) 0.1, Nucleated Red Blood Cells % (auto) 0.0, Anion Gap 7L, Glomerular Filtration Rate > 60.0, Lactic Acid Level 1.6, Calcium Level 9.2, Total Bilirubin 0.5, Direct Bilirubin < 0.1, Aspartate Amino Transf (AST/SGOT) 36, Alanine Aminotransferase (ALT/SGPT) 48, Alkaline Phosphatase 127H, Total Protein 6.9, Albumin 3.4, Albumin/Globulin Ratio 1.0L, Lipase 353 CBC/BMP Laboratory Tests 05/27/20 14:23 Microbiology Microbiology 05/27/20 Blood Culture, Received Pending 05/27/20 Urine Culture, Received Pending 05/27/20 Blood Culture, Received Pending Home Medications Scheduled Ciprofloxacin HCl (Cipro) 500 Mg Tablet, 500 MG PO BID Gabapentin (Gabapentin) 600 Mg Tab, 600 MG PO BID Metronidazole (Flagyl) 500 Mg Tablet, 500 MG PO Q8H Nortriptyline HCl (Nortriptyline HCl) 50 Mg Cap, 50 MG PO QHS Omeprazole (Omeprazole) 20 Mg Cap, 20 MG PO DAILY Miscellaneous Medications Methocarbamol (Methocarbamol) 750 Mg Tablet Allergies Coded Allergies: TAPE (Verified Allergy, Intermediate, PLASTIC TABE CAUSES SKIN BUBBLING, 06/03/08) meloxicam (Verified Allergy, Intermediate, 05/24/20) PER PT, CAN TOLERATE TORADOL tetracycline (Verified Allergy, Intermediate, 03/17/20) clindamycin (Verified Allergy, Mild, DIFFUSE RASH MOSTLY ON BACK ON 02/12, DAY #1 02/06 TYPE 3?, 03/17/20) A-FIB/CHADSVASC A-FIB History Current/History of A-Fib/PAF?: No Current PO Anticoag Therapy: No Age/Risk Factor Scoring CHADSVASC: CHADSVASC Response (Comments) Value Age Risk Factor Age < 65 years old 0 Gender Risk Factor Female 1 Hx of CHF No 0 Hx of HTN No 0 Hx of Stroke/TIA/or VTE No 0 Hx of Diabetes No 0 Hx of Vascular Disease No 0 Total 1 Treatment Treatment ordered: Other Other anticoagulant ordered: enoxaparin Rebeca Lai MD May 27, 2020 16:54
[2020-05-27] MEDS ORDERED: KETOROLAC 30 MG/ML 1ML VIAL IV PRN (17:30)
[2020-05-27] MEDS ORDERED: DRIS50003 PO (17:31)
[2020-05-27] MEDS ORDERED: NORT50CA PO (17:38)
[2020-05-27] MEDS ORDERED: GABA800T4 PO (17:38)
[2020-05-27] MEDS ORDERED: NEUR800T PO (17:38)
[2020-05-27] MEDS ORDERED: NORC1TAB5 PO (17:38)
[2020-05-27] MEDS ORDERED: SUMA50TA2 PO (17:40)
[2020-05-27 17:48] VITALS: BP 122/87
[2020-05-27] MEDS: NS 1,000 ML IV SCH ×2 (18:01→22:17)
[2020-05-27 22:00] VITALS: BP 121/72
[2020-05-27] MEDS: PIPERACILLIN/TAZOBACTAM SOD 3.375 GM in D5W MINI-BAG PLUS 50 ML IV SCH (22:17)
[2020-05-28] MEDS: PIPERACILLIN/TAZOBACTAM SOD 3.375 GM in D5W MINI-BAG PLUS 50 ML IV SCH ×4 (05:13→23:25)
[2020-05-28 05:57] LABS: HEMATOCRIT 43.8 % (36.0-47.0); HEMOGLOBIN 14.5 g/dl (12.0-15.5); MEAN CORPUSCULAR HEMOGLOBIN 30.5 pg (27.0-33.0); MEAN CORPUSCULAR HGB CONC 33.1 g/dl (32.0-36.5); MEAN CORPUSCULAR VOLUME 92.2 fl (80.0-96.0); PLATELET COUNT, AUTOMATED 286 10^3/uL (150-450); RED BLOOD COUNT 4.75 10^6/uL (4.00-5.40); WHITE BLOOD COUNT 7.7 10^3/uL (4.0-10.0)
[2020-05-28 06:00] VITALS: BP 124/72
[2020-05-28 06:26] LABS: ALBUMIN 2.8 GM/DL (3.2-5.2); ALT/SGPT 43 U/L (12-78); BILIRUBIN,TOTAL 0.3 MG/DL (0.2-1.0); BLOOD UREA NITROGEN 9 MG/DL (7-18); CALCIUM LEVEL 8.3 MG/DL (8.5-10.1); CARBON DIOXIDE LEVEL 25 MEQ/L (21-32); CHLORIDE LEVEL 111 MEQ/L (98-107); CREATININE FOR GFR 0.64 MG/DL (0.55-1.30); GLOMERULAR FILTRATION RATE > 60.0 (>51); GLUCOSE, FASTING 81 MG/DL (70-100); POTASSIUM SERUM 4.1 MEQ/L (3.5-5.1); SODIUM LEVEL 141 MEQ/L (136-145)
[2020-05-28] MEDS: PANTOPRAZOLE 40MG VIAL (C9113 PER 1) IV SCH (08:08)
[2020-05-28] MEDS: ENOXAPARIN 40MG/0.4ML SYRINGE (J1650 PER 10MG) SC SCH (08:08)
[2020-05-28] MEDS ORDERED: FLUBLOK(EGG FREE)(QUAD)INFLUENZA VACC 0.5ML SYRINGE 18YRS & OLDER IM ONE (09:00)
[2020-05-28] MEDS ORDERED: SUMAtriptan SUCCINATE 25 MG TAB PO PRN (09:00)
[2020-05-28] MEDS: GABAPENTIN 400 MG CAP PO SCH (09:28)
[2020-05-28] MEDS: NS 1,000 ML IV SCH ×3 (10:00→19:27)
[2020-05-28] MEDS: methocarbamoL 750 MG TAB PO SCH ×3 (11:41→20:40)
[2020-05-28 14:00] VITALS: BP 140/91
--- NOTE | 2020-05-28 17:33 | IPNPDOC ---
Date Seen The patient was seen on 05/28/20. Progress Note SUBJECTIVE: Improved pain. Surgery advanced diet to clear liquid. Denies n/v/d, fevers, chills. OBJECTIVE: PHYSICAL EXAMINATION: VS: Please see below CONSTITUTIONAL: Resting comfortably in bed. AAO x 3 EYES: PERRLA, EOM intact HENT, MOUTH: Normocephalic, atraumatic, moist mucous membranes, NECK: SUPPLE, no JVD, no lymphadenopathy, no carotid bruit CV: Regular rate and rhythm, S1S2 normal, no murmurs/rubs/gallops RESPIRATORY: Clear to auscultation bilaterally, no rales/rhonchi/wheezes GI: obese abd, hyperactive bowel sounds, BS positive in 4 quadrants, soft, nondistended, no rebound or guarding, no organomegaly : Deferred MUSCULOSKELETAL: Normal ROM. No cyanosis, clubbing, swelling, joint deformity, extremity edema INTEGUMENTARY: Intact, no rashes, no lesions, no erythema NEUROLOGIC: Cranial Nerves II-XII are intact, no focal deficits PSYCHIATRIC: Mood and affect are normal LABORATORY DATA: Please see below. IMAGING: CT abd/pelvis: 1. Mid to distal sigmoid diverticulitis without perforation or abscess there is some mild infiltration of fat of the diverticulosis adjacent. No abscess, trace fluid present. 2. Mild the left hydronephrosis and hydroureter without visible renal or ureteral stone, stable. 3. Fatty change in the liver with prior cholecystectomy and a stable left adrenal adenoma. No new findings or interval changes from 05/24/2020. 4. 13 x 12 mm gap to the left of midline with omental fat protruding, just above the level of the hernia mesh. No bowel herniation. ASSESSMENT: 54-year-old female with past medical history of herniated lower discs of the back and neck, ANILA, hyperlipidemia, tobacco use, recent diagnosis on 06-11 of diverticulitis admitted for acute sigmoid diverticulitis, failing outpatient treatment. PLAN: 1. Acute sigmoid diverticulitis -WBC 7.7, improved abd pain. -CT above -Advanced to CLD, possibly even further tonight -C/w zosyn, toradol PRN -F/u daily CBC -Surgery following 2. Mild left hydronephrosis and hydroureter -Cr wnl, no left flank pain -UA neg -At this time only monitor for changes 3. Fatty change in liver -BMI 32.5, Hx of HLD -Lifestyle changes 4. Chronic pain 2/2 to herniated lower back, cervical discs -C/w home gabapentin, nortriptyline 5. ANILA -Can use home CPAP if has one 6. HLD -Not on statin 7. Left adrenal adenoma -stable since 05/24/20 -F/u with PCP 8. GERD -PPI 9. DVT px -Enoxaparin DISPOSITION: Admitted under inpatient status. Plan is discharge home when m edically improved. VS, I&O, 24H, Fishbone Vital Signs/I&O Vital Signs Date Time Temp Pulse Resp B/P (MAP) Pulse Ox O2 Delivery O2 Flow Rate FiO2 05/28/20 14:00 98.4 67 18 140/91 (107) 94 05/27/20 17:48 Room Air I&O- Last 24 Hours up to 6 AM 05/28/20 06:00 Intake Total 2800 ml Output Total 0 ml Balance 2800 ml Laboratory Data 24H LABS Laboratory Tests 2 05/28/20 05:46: Nucleated Red Blood Cells % (auto) 0.0, Anion Gap 5L, Glomerular Filtration Rate > 60.0, Calcium Level 8.3L, Total Bilirubin 0.3, Aspartate Amino Transf (AST/SG OT) 32, Alanine Aminotransferase (ALT/SGPT) 43, Alkaline Phosphatase 106, Total Protein 6.0L, Albumin 2.8L, Albumin/Globulin Ratio 0.9L CBC/BMP Laboratory Tests 05/28/20 05:46 Microbiology Microbiology 05/27/20 Blood Culture - Preliminary, Resulted No growth after 24 hours . All specim... 05/27/20 Urine Culture - Final, Complete 05/27/20 Blood Culture - Preliminary, Resulted No growth after 24 hours . All specim... Current Medications Current Medications Medications (Trade) Dose Ordered Sig/Cliff Route PRN Reason Start Time Stop Time Status Last Admin Dose Admin Enoxaparin Sodium (Lovenox) 40 mg DAILY SC 05/28/20 09:00 05/28/20 08:08 Gabapentin (Neurontin) 800 mg DAILY PO 05/28/20 09:00 05/28/20 09:28 Gabapentin (Neurontin) 1,600 mg QHS PO 05/28/20 21:00 Home Med (Med Rec Complete!) ASDIRECTED XX 05/27/20 17:45 05/27/20 17:47 DC Ketorolac Tromethamine (ToRADol) 15 mg Q6H PRN IV PAIN 05/27/20 17:30 06/01/20 17:29 05/27/20 18:01 Methocarbamol (Robaxin) 750 mg TID PO 05/28/20 09:00 05/28/20 17:01 Nortriptyline HCl (Pamelor) 100 mg QHS PO 05/28/20 21:00 Pantoprazole Sodium (Protonix) 40 mg DAILY IV 05/28/20 09:00 05/28/20 08:08 Piperacillin Sod/ Tazobactam Sod 3.375 gm/Dextrose 50 ml @ 50 mls/hr Q6H IV 05/27/20 23:00 05/28/20 17:02 Sodium Chloride 1,000 ml @ 150 mls/hr Q6H40M IV 05/27/20 17:30 05/28/20 17:01 Sumatriptan Succinate (Imitrex) 50 mg DAILY PRN PO MIGRAINE 05/28/20 09:00 Allergies Coded Allergies: TAPE (Verified Allergy, Intermediate, PLASTIC TABE CAUSES SKIN BUBBLING, 06/03/08) meloxicam (Verified Allergy, Intermediate, 05/24/20) PER PT, CAN TOLERATE TORADOL tetracycline (Verified Allergy, Intermediate, 03/17/20) clindamycin (Verified Allergy, Mild, DIFFUSE RASH MOSTLY ON BACK ON 02/12, DAY #1 02/06 TYPE 3?, 03/17/20) Rebeca Lai MD May 28, 2020 17:33
[2020-05-28] MEDS ORDERED: NORTRIPTYLINE 25 MG CAP PO SCH (21:00)
[2020-05-28] MEDS ORDERED: GABAPENTIN 400 MG CAP PO SCH (21:00)
[2020-05-28 22:00] VITALS: BP 138/89
[2020-05-29] MEDS: NS 1,000 ML IV SCH ×2 (02:14→09:10)
[2020-05-29] MEDS: PIPERACILLIN/TAZOBACTAM SOD 3.375 GM in D5W MINI-BAG PLUS 50 ML IV SCH ×2 (05:09→11:29)
[2020-05-29 06:00] VITALS: BP 136/86
[2020-05-29 07:07] LABS: HEMATOCRIT 44.4 % (36.0-47.0); HEMOGLOBIN 14.7 g/dl (12.0-15.5); MEAN CORPUSCULAR HEMOGLOBIN 30.4 pg (27.0-33.0); MEAN CORPUSCULAR HGB CONC 33.1 g/dl (32.0-36.5); MEAN CORPUSCULAR VOLUME 91.7 fl (80.0-96.0); PLATELET COUNT, AUTOMATED 293 10^3/uL (150-450); RED BLOOD COUNT 4.84 10^6/uL (4.00-5.40); WHITE BLOOD COUNT 8.7 10^3/uL (4.0-10.0)
[2020-05-29 07:43] LABS: ALBUMIN 2.9 GM/DL (3.2-5.2); ALT/SGPT 58 U/L (12-78); BILIRUBIN,TOTAL 0.3 MG/DL (0.2-1.0); BLOOD UREA NITROGEN 5 MG/DL (7-18); CALCIUM LEVEL 8.3 MG/DL (8.5-10.1); CARBON DIOXIDE LEVEL 26 MEQ/L (21-32); CHLORIDE LEVEL 113 MEQ/L (98-107); CREATININE FOR GFR 0.73 MG/DL (0.55-1.30); GLOMERULAR FILTRATION RATE > 60.0 (>51); GLUCOSE, FASTING 80 MG/DL (70-100); POTASSIUM SERUM 4.4 MEQ/L (3.5-5.1); SODIUM LEVEL 144 MEQ/L (136-145); TOTAL PROTEIN 5.7 GM/DL (6.4-8.2)
[2020-05-29] MEDS ORDERED: FLAG500T PO (08:31)
[2020-05-29] MEDS ORDERED: CIPR-249 PO (08:31)
[2020-05-29] MEDS: GABAPENTIN 400 MG CAP PO SCH (09:02)
[2020-05-29] MEDS: methocarbamoL 750 MG TAB PO SCH (09:02)
[2020-05-29] MEDS: PANTOPRAZOLE 40MG VIAL (C9113 PER 1) IV SCH (09:03)
[2020-05-29] MEDS: ENOXAPARIN 40MG/0.4ML SYRINGE (J1650 PER 10MG) SC SCH (09:03)
--- NOTE | 2020-05-29 19:03 | DS.PDOC ---
Discharge Summary General Date of Admission May 27, 2020 at 16:51 Date of Discharge 05/29/20 Attending Physician: Rebeca Lai MD Discharge Summary HISTORY OF PRESENT ILLNESS: Agent is a 54-year-old female with past medical history of herniated lower discs of the back and neck, ANILA, hyperlipidemia, tobacco use, recent diagnosis on 05/24/20 of diverticulitis who presented to [facility] emergency room with worsening lower abdominal pain. The patient states her pain started 05/22/2020 with diffuse lower abdominal pain more so in the left lower quadrant initially. She thought this was gas pain as it was intermittent. As the days went on the patient developed worsening abdominal pain. She also struggles with constipation so she thought it was secondary to this as well. On 05/24/2020 the patient came to the emergency room and was diagnosed with diverticulitis, sent home with Ci pro and Flagyl. The patient states her abdominal pain worsened despite being compliant with antibiotics. She was later instructed by her primary care doctor to come in again today to be assessed. She admits to having associated nausea, constipation, decreased appetite, decreased by mouth intake. She denies diarrhea, shortness of breath, chest pain, fevers or chills at home. Emergency room vital signs were stable. WBC 12.2. T of the abdomen and pelvis showed mid to distal sigmoid diverticulitis without perforation or abscess was some mild menstruation of fat on the diverticulosis adjacent. No abscess, trace fluid or pressure present. Mild left hydronephrosis and hydroureter without visible renal or ureteral stone. The case was discussed with general surgery technology professional who suggested admission under hospitalist service. The patient was admitted for acute sigmoid diverticulitis, failing outpatient treatment. HOSPITAL COURSE: Patient continued with IV zosyn until 05/29/20. WBC normalized, VS remained stable. Diet was advanced slowly and abd. pain resolved. On 05/29/20 patient was discharged home with f/u with PCP, additional 8 days of PO abx to complete. She is to report any incr abd pain, fevers, chills, nausea, vomiting or diarrhea to her provider immediately. REVIEW OF SYSTEMS: CONSTITUTIONAL: Deniesunexplained weight gain or weight loss, fever, night sweats EYES: Denies eye drainage, eye pain, visual changes, dry/irritated eye EARS, NOSE, MOUTH, THROAT: Denies difficulty hearing, ringing in ears, mouth sores, loose teeth, sore throat, facial numbness or pain NECK: Denies swollen glands CARDIOVASCULAR: Denies irregular heartbeat, racing heart, swelling of feet or legs, pain in legs with walking RESPIRATORY: Denies shortness of breath, night sweats, wheezing, sputum pr oduction, oxygen at home, coughing up blood, cough lasting > 1 month GASTROINTESTINAL: Denies a bloody stool, diarrhea, heartburn, vomiting GENITOURINARY: Denies bloody urine, frequent urination, leaking urine, impotence MUSCULOSKELETAL: Denies muscle pain, leg swelling INTEGUMENTARY: Denies rash, itching, new skin lesion, change in existing skin lesion, hair loss or increase, breast changes. NEUROLOGICAL: Denies headaches, dizziness, difficulty walking, numbness or tingling PSYCHIATRIC: Denies depression, anxiety, recurrent bad thoughts, mood swings, hallucinations PAST MEDICAL HISTORY: 1. Herniated disks in her lower back and neck 2. Muscle spasms 3. Hypoglycemia, associated with decreased oral intake 4. ANILA 5. HLD 6. Tobacco use PAST SURGICAL HISTORY: 1. Cholecystectomy 2. Appendectomy 3. Hernia repair 4. Right ovary removal 5. Uterine ablation 6. Deviated septum repair 7. Tonsillectomy FAMILY HISTORY: Father: CAD, COPD, asthma. at 67 y/o Mother: TIA, HTN. alive SOCIAL HISTORY: Tobacco smoker 1 pack per day for 40 years. Denies alcohol or illicit drug use outside of medical marijuana. She follows with neurology, Dr. Magaña's office. She lives with her in the local area. She is disabled. Full Code. ALLERGIES: Please see below. HOME MEDICATIONS: Please see below. HYSICAL EXAMINATION: VS: Please see below CONSTITUTIONAL: Resting comfortably in bed. AAO x 3 EYES: PERRLA, EOM intact HENT, MOUTH: Normocephalic, atraumatic, moist mucous membranes, NECK: SUPPLE, no JVD, no lymphadenopathy, no carotid bruit CV: Regular rate and rhythm, S1S2 normal, no murmurs/rubs/gallops RESPIRATORY: Clear to auscultation bilaterally, no rales/rhonchi/wheezes GI: obese abd, hyperactive bowel sounds, BS positive in 4 quadrants, soft, nondistended, no rebound or guarding, no organomegaly, no abdominal pain on exam : Deferred MUSCULOSKELETAL: Normal ROM. No cyanosis, clubbing, swelling, joint deformity, extremity edema INTEGUMENTARY: Intact, no rashes, no lesions, no erythema NEUROLOGIC: Cranial Nerves II-XII are intact, no focal deficits PSYCHIATRIC: Mood and affect are normal LABORATORY DATA: Please see below. IMAGING: CT abd/pelvis: 1. Mid to distal sigmoid diverticulitis without perforation or abscess there is some mild infiltration of fat of the diverticulosis adjacent. No abscess, trace fluid present. 2. Mild the left hydronephrosis and hydroureter without visible renal or ureteral stone, stable. 3. Fatty change in the liver with prior cholecystectomy and a stable left adrenal adenoma. No new findings or interval changes from 05/24/2020. 4. 13 x 12 mm gap to the left of midline with omental fat protruding, just above the level of the hernia mesh. No bowel herniation. ASSESSMENT: 54-year-old female with past medical history of herniated lower discs of the back and neck, ANILA, hyperlipidemia, tobacco use, recent diagnosis on 06-11 of diverticulitis admitted for acute sigmoid diverticulitis, failing outpatient treatment. PLAN: 1. Acute sigmoid diverticulitis -WBC wnl, improved abd pain. -CT above -Advanced diet, tolerated well. -REceived several days IV zosyn -C/w 8 additional days of ciprofloxacin, flagyl after d/c and f/u with PCP 2. Mild left hydronephrosis and hydroureter -Cr wnl, no left flank pain -UA neg -F/u PCP 3. Fatty change in liver -BMI 32.5, Hx of HLD -Lifestyle changes 4. Chronic pain 2/2 to herniated lower back, cervical discs -C/w home gabapentin, nortriptyline 5. ANILA -F/u with PCP 6. HLD -Not on statin 7. Left adrenal adenoma -stable since 05/24/20 -F/u with PCP DISPOSITION: Discharge home today with additional 8 days oral abx. F/u with PCP after weekend. TIME SPENT ON DISCHARGE: Greater than minutes. Vital Signs/I&Os Vital Signs Date Time Temp Pulse Resp B/P (MAP) Pulse Ox O2 Delivery O2 Flow Rate FiO2 05/29/20 06:00 97.8 61 18 136/86 (103) 94 Room Air I&O- Last 24 Hours up to 6 AM 05/29/20 06:00 Intake Total 2790 ml Output Total 4800 ml Balance -2010 ml Laboratory Data Labs 24H Laboratory Tests 2 05/29/20 06:50: Nucleated Red Blood Cells % (auto) 0.0, Anion Gap 5L, Glomerular Filtration Rate > 60.0, Calcium Level 8.3L, Total Bilirubin 0.3, Aspartate Amino Transf (AST/SGOT) 42H, Alanine Aminotransferase (ALT/SGPT) 58, Alkaline Phosphatase 108, Total Protein 5.7L, Albumin 2.9L, Albumin/Globulin Ratio 1.0L CBC/BMP Laboratory Tests 05/29/20 06:50 Microbiology Microbiology 05/27/20 Blood Culture - Preliminary, Resulted No Growth after 48 hours. All Specime... 05/27/20 Urine Culture - Final, Complete 05/27/20 Blood Culture - Preliminary, Resulted No Growth after 48 hours. All Specime... Discharge Medications Scheduled Ciprofloxacin HCl (Cipro) 500 Mg Tablet, 500 MG PO BID Ergocalciferol (Vitamin D2) (Drisdol) 1,250 Mcg Capsule, 1,250 MCG PO QWEEK, (Reported) PT TAKES ON SUNDAY NIGHTS, WITH FOOD Gabapentin (Neurontin) 800 Mg Tablet, 800 MG PO DAILY, (Reported) Gabapentin (Gabapentin) 800 Mg Tablet, 1,600 MG PO QHS, (Reported) Methocarbamol (Methocarbamol) 750 Mg Tablet, 750 MG PO TID, (Reported) Metronidazole (Flagyl) 500 Mg Tablet, 500 MG PO Q8H Nortriptyline HCl (Nortriptyline HCl) 50 Mg Capsule, 100 MG PO QHS, (Reported) Omeprazole (Omeprazole) 20 Mg Cap, 20 MG PO DAILY, (Reported) Scheduled PRN Hydrocodone/Acetaminophen ([place] 10-325 Tablet) 1 Each Tablet, 1 TAB PO TID PRN for PAIN, (Reported) Sumatriptan Succinate (Sumatriptan Succinate) 50 Mg Tablet, 50 MG PO DAILY PRN for MIGRAINE, (Reported) Allergies Coded Allergies: TAPE (Verified Allergy, Intermediate, PLASTIC TABE CAUSES SKIN BUBBLING, 06/03/08) meloxicam (Verified Allergy, Intermediate, 05/24/20) PER PT, CAN TOLERATE TORADOL tetracycline (Verified Allergy, Intermediate, 03/17/20) clindamycin (Verified Allergy, Mild, DIFFUSE RASH MOSTLY ON BACK ON 02/12, DAY #1 02/06 TYPE 3?, 03/17/20) Rebeca Lai MD May 29, 2020 19:03
--- NOTE | 2020-05-31 07:26 | CR ---
DATE OF CONSULT: 05/28/2020 REASON FOR CONSULT: Diverticulitis. HISTORY OF PRESENT ILLNESS: Patient is a 54-year-old female who presents to the Emergency Room with complaints of lower abdominal pain that has not improved. She had diverticulitis diagnosed on 05/24/2020. she was discharged home with Cipro and Flagyl which she has been taking religiously; however, the pain has been getting persistently worse so she was brought back in. in the Emergency Room she had repeat CT which again showed inflammation. She also had some hydronephrosis on the left and an elevated white count of 12.2 otherwise her vitals were stable and she was afebrile. She was admitted to the medicine service overnight and I was asked to consult. This morning her white count is back down to normal, her pain is completely gone. She had a large bowel movement this morning that was not painful for her. Other than being hungry she has no complaints this morning. This episode of diverticulitis was her first one ever. She has never had issues with it in the past. She has had 2 colonoscopies within the last 4 years both of which show that she had diverticulosis, but this is her first episode with diverticulitis. PAST MEDICAL HISTORY: * Herniated discs. * Muscle spasms. * Hypoglycemia. * Sleep apnea. * Hyperlipidemia. * Tobacco usage. PAST SURGICAL HISTORY: * Cholecystectomy. * Appendectomy. * Hernia repair. * Right ovary removal. * Uterine ablation. * Deviated septal repair. * Tonsillectomy. SOCIAL HISTORY: Smokes a pack a day. Denies drug or alcohol abuse. FAMILY HISTORY: Noncontributory. ALLERGIES: * TAPE. * CLINDAMYCIN. * MELOXICAM. * TETRACYCLINE. HOME MEDICATIONS: Please see Med Rec. REVIEW OF SYSTEMS: Pertinent positives and negatives as stated in the HPI. PHYSICAL EXAMINATION: General: Patient is A&O times 3, in no acute distress. Vital signs: Temp 97.9, pulse 68, respirations 19, blood pressure 124/72, pulse ox 97% on room air. HEENT: Pupils equal, round and reactive to light and accommodation. Heart: S1 and S2 regular rate and rhythm. Lungs: Clear to auscultation bilaterally. Abdomen: Soft, nontender, nondistended. No ventral hernia. Extremities: No clubbing, cyanosis or edema. LABORATORY DATA: White count 7.7, hemoglobin 14.5, platelets 286. Potassium 4.1, creatinine 0.64. IMAGING: CT abdomen and pelvis done in the Emergency Room showed mid to distal sigmoid diverticulitis without perforation or abscess. There is some mild infiltration of fat of the diverticulosis adjacent, no abscess, trace fluid present. ASSESSMENT AND PLAN: Patient is a 54-year-old female with diverticulitis that is non-complicated. Recommendation at this time is to put her on a liquid diet, keep her on I.V. antibiotics for 24 hours. Her pain is already gone, but I think that I.V. antibiotics would be of benefit for her since her CT has showed so much inflammation. Tomorrow morning she can be discharged home on a low residue diet and she can continue with a low residue diet for 2 weeks. If after 2 weeks she has 0 pain then she can be switched back over to a high residue diet. If her symptoms return in the future she can follow up in our office otherwise there is no need for follow up upon discharge. All of her questions were answered. Thank you for the consult. CHARLES
== END 2020-05-29 13:35 | disposition home or self-care (01) | DRG 392 ==
LOC: M ED 13:22 → M ED INP 16:51 → ENRESERV 17:08 → M MSPAV 17:42
PROVIDERS: ADMIT Internal Medicine; ATTEND Internal Medicine
DX: K57.32 Diverticulitis of large intestine without perforation or abscess without bleeding (principal); N13.30 Unspecified hydronephrosis; M50.20 Other cervical disc displacement, unspecified cervical region; G47.33 Obstructive sleep apnea (adult) (pediatric); D35.00 Benign neoplasm of unspecified adrenal gland; Z79.899 Other long term (current) drug therapy; Z88.8 Allergy status to other drugs, medicaments and biological substances; F17.200 Nicotine dependence, unspecified, uncomplicated; E78.5 Hyperlipidemia, unspecified

== ENCOUNTER → 2021-05-05 | Outpatient (REF) | payer OTHER ==
[~2021-05-05] MED LIST changes: +DRIS50003 PO; +GABA800T4 PO; +METH-1165 PO; -METH750T2 PO; +NEUR800T PO; +SUMA50TA2 PO
== END ==
LOC: M SFHCPLAZ 13:11
PROVIDERS: ATTEND Nurse Practitioner Family
DX: D48.5 Neoplasm of uncertain behavior of skin (principal)

== ENCOUNTER → 2021-09-23 | Outpatient (CLI) | payer OTHER ==
[2021-09-23 13:39] LABS: APPEARANCE, URINE CLEAR (CLEAR); BACTERIA, URINE AUTO NEGATIVE (NEGATIVE); BASO # 0.1 10^3/uL (0.0-0.2); BASO % 0.7 % (0.0-1.0); BILIRUBIN, URINE AUTO NEGATIVE (NEGATIVE); BLOOD, URINE BLOOD NEGATIVE (NEGATIVE); COLOR, URINE STRAW (YELLOW); EOS # 0.5 10^3/uL (0.0-0.5); EOS % 4.4 % (0.0-3.0); GLUCOSE, URINE (UA) AUTO NEGATIVE (NEGATIVE); HEMATOCRIT 49.4 % (36.0-47.0); HEMOGLOBIN 16.2 g/dl (12.0-15.5); KETONE, URINE AUTO NEGATIVE (NEGATIVE); LEUKOCYTE ESTERASE, URINE AUTO NEGATIVE (NEGATIVE); LYMPH # 3.3 10^3/uL (1.5-5.0); LYMPH % 28.5 % (24.0-44.0); MEAN CORPUSCULAR HEMOGLOBIN 30.7 pg (27.0-33.0); MEAN CORPUSCULAR HGB CONC 32.8 g/dl (32.0-36.5); MEAN CORPUSCULAR VOLUME 93.6 fl (80.0-96.0); MONO # 0.6 10^3/uL (0.0-0.8); MONO % 5.3 % (2.0-8.0); MUCUS, URINE SMALL (NEGATIVE); NEUTROPHILS % 60.8 % (36.0-66.0); NITRITE, URINE AUTO NEGATIVE (NEGATIVE); PLATELET COUNT, AUTOMATED 391 10^3/uL (150-450); PROTEIN, URINE AUTO NEGATIVE (NEGATIVE); RBC, URINE AUTO 0 /HPF (0-3); RED BLOOD COUNT 5.28 10^6/uL (4.00-5.40); SPECIFIC GRAVITY URINE AUTO 1.004 (1.002-1.035); SQUAMOUS EPITHELIAL CELL UR AU 0 /HPF (0-6); UROBILINOGEN, URINE AUTO 0.2 mg/dL (0.0-2.0); WBC, URINE AUTO 0 /HPF (0-3); WHITE BLOOD COUNT 11.5 10^3/uL (4.0-10.0)
[2021-09-23 15:04] LABS: ALT/SGPT 36 U/L (12-78); BILIRUBIN,TOTAL 0.3 MG/DL (0.2-1.0); BLOOD UREA NITROGEN 10 MG/DL (7-18); CALCIUM LEVEL 9.9 MG/DL (8.5-10.1); CARBON DIOXIDE LEVEL 31 MEQ/L (21-32); CHLORIDE LEVEL 110 MEQ/L (98-107); CREATININE FOR GFR 0.76 MG/DL (0.55-1.30); GLOMERULAR FILTRATION RATE > 60.0 (>51); GLUCOSE, FASTING 86 MG/DL (70-100); POTASSIUM SERUM 4.8 MEQ/L (3.5-5.1); SODIUM LEVEL 143 MEQ/L (136-145); TOTAL 25(OH) VITAMIN D 68.5 NG/ML (30.0-100.0); TOTAL PROTEIN 7.1 GM/DL (6.4-8.2)
== END ==
LOC: M PLALAB 10:10
PROVIDERS: ATTEND Family Medicine
DX: E78.2 Mixed hyperlipidemia (principal)

== ENCOUNTER → 2021-09-26 | Outpatient (CLI) | payer OTHER ==
[2021-09-27 11:46] LABS: JAK2 MUTATIONS FOR PATH SENDOU See Pathology Report
[2021-09-28 06:09] LABS: ERYTHROPOIETIN 5.6 mIU/mL (2.6-18.5)
== END ==
LOC: M PLALAB 13:43
PROVIDERS: ATTEND Family Medicine
DX: D58.2 Other hemoglobinopathies (principal)

== ENCOUNTER → 2021-10-05 | Outpatient (CLI) | payer BC, OTHER ==
[~2021-10-05] MED LIST changes: +GASTROGRAFIN SOLUTION 30ML (Q9963) As Ordered ONE; +ISOVUE-370 76% 100ML VIAL As Ordered ONE
== END ==
LOC: M RAD 09:13
PROVIDERS: ATTEND Family Medicine
DX: R10.9 Unspecified abdominal pain (principal)
CPT/HCPCS: 74178; Q9963; Q9967

== ENCOUNTER → 2021-10-24 | Outpatient (CLI) | payer OTHER ==
[~2021-10-24] MED LIST changes: -GASTROGRAFIN SOLUTION 30ML (Q9963) As Ordered ONE; -ISOVUE-370 76% 100ML VIAL As Ordered ONE
== END ==
LOC: M RAD 13:36
PROVIDERS: ATTEND Family Medicine
DX: F17.210 Nicotine dependence, cigarettes, uncomplicated (principal); R91.8 Other nonspecific abnormal finding of lung field

== ENCOUNTER → 2021-12-06 | Outpatient (REF) | payer OTHER | LOC: M SFHCDERM 13:57 | PROVIDERS: ATTEND Nurse Practitioner Family | DX: D22.39 Melanocytic nevi of other parts of face (principal) ==

== ENCOUNTER → 2021-12-28 | Outpatient (REF) | payer OTHER | LOC: M LAB REF 16:23 | PROVIDERS: ATTEND Physician Assistant Medical | DX: J02.9 Acute pharyngitis, unspecified (principal) ==

== ENCOUNTER → 2021-12-28 | Outpatient (CLI) | payer OTHER | LOC: M LABSMTC 10:09 | PROVIDERS: ATTEND Pediatrics | DX: Z20.822 Contact with and (suspected) exposure to COVID-19 (principal) ==

== ENCOUNTER 2022-08-21 12:24 | Inpatient (IN) | payer OTHER, SELFPAY ==
[~2022-08-21] VITALS: Ht 175.3 cm; Wt 97.1 kg
[2022-08-21] MEDS ORDERED: ISOVUE-370 76% 100ML VIAL As Ordered ONE (14:16)
[2022-08-21 14:37] LABS: HEMOGLOBIN 16.6 g/dl (12.0-15.5); MEAN CORPUSCULAR HEMOGLOBIN 30.3 pg (27.0-33.0); MEAN CORPUSCULAR HGB CONC 32.5 g/dl (32.0-36.5); MEAN CORPUSCULAR VOLUME 93.1 fl (80.0-96.0); PLATELET COUNT, AUTOMATED 397 10^3/uL (150-450); RED BLOOD COUNT 5.48 10^6/uL (4.00-5.40); WHITE BLOOD COUNT 13.1 10^3/uL (4.0-10.0)
[2022-08-21 14:48] LABS: ANISOCYTOSIS 1+; ATYPICAL LYMPH 9 % (0-5); EOSINOPHILS 1 % (0-3); INR 0.87; LYMPHOCYTES 22 % (16-44); MONOCYTES 5 % (0-5); NEUTROPHILS 63 % (28-66); PLATELET ESTIMATE NORMAL (NORMAL)
[2022-08-21 14:52] LABS: RSV AMPLIFICATION NEGATIVE (NEGATIVE)
[2022-08-21] MEDS ORDERED: ACETAMINOPHEN 500 MG TAB PO ONE (19:20)
[2022-08-21] MEDS ORDERED: NS 1,000 ML IV ONE (19:20)
[2022-08-21] MEDS ORDERED: MECLIZINE 25 MG TABLET PO ONE (19:45)
[2022-08-21 19:52] LABS: MONO REFLEX EBV COMP NEGATIVE (NEGATIVE)
[2022-08-21] MEDS ORDERED: KETOROLAC 30 MG/ML 1ML VIAL IV ONE (21:25)
[2022-08-21] MEDS ORDERED: ACETAMINOPHEN TAB 650MG DOSE (2X325MG) PO PRN (22:05)
[2022-08-21] MEDS ORDERED: NS 1,000 ML IV SCH (22:05)
[2022-08-21] MEDS ORDERED: METH-1165 PO (22:39)
[2022-08-21] MEDS ORDERED: ERGO500029 PO (22:39)
[2022-08-21] MEDS ORDERED: OMEP-173 PO (22:39)
[2022-08-21] MEDS ORDERED: HOME MED LIST COMPLETE! XX SCH (22:40)
[2022-08-21 23:57] VITALS: BP 166/84
[2022-08-22] MEDS ORDERED: NORTRIPTYLINE 25 MG CAP PO SCH (00:15)
[2022-08-22] MEDS ORDERED: methocarbamoL 750 MG TAB PO SCH (00:15)
[2022-08-22] MEDS: GABAPENTIN 400MG CAP PO SCH ×2 (00:55→08:35)
[2022-08-22] MEDS: OMEPRAZOLE 20MG CAP PO SCH ×2 (00:55→08:35)
[2022-08-22 03:05] VITALS: BP 152/78
[2022-08-22 06:00] VITALS: BP 136/79
[2022-08-22 06:03] LABS: HEMATOCRIT 43.8 % (36.0-47.0); HEMOGLOBIN 14.5 g/dl (12.0-15.5); MEAN CORPUSCULAR HEMOGLOBIN 30.5 pg (27.0-33.0); MEAN CORPUSCULAR HGB CONC 33.1 g/dl (32.0-36.5); MEAN CORPUSCULAR VOLUME 92.2 fl (80.0-96.0); PLATELET COUNT, AUTOMATED 341 10^3/uL (150-450); RED BLOOD COUNT 4.75 10^6/uL (4.00-5.40); WHITE BLOOD COUNT 8.8 10^3/uL (4.0-10.0)
[2022-08-22 06:25] LABS: ALKALINE PHOSPHATASE 80 U/L (46-116); ALT/SGPT 30 U/L (7.0-40); AST/SGOT 22 U/L (<34); BILIRUBIN,TOTAL 0.4 MG/DL (0.3-1.2); BLOOD UREA NITROGEN 10 MG/DL (9-23); CALCIUM LEVEL 8.3 MG/DL (8.5-10.1); CARBON DIOXIDE LEVEL 26 MMOL/L (20-31); CHLORIDE LEVEL 109 MMOL/L (98-107); CREATININE FOR GFR 0.61 MG/DL (0.55-1.30); GLOMERULAR FILTRATION RATE > 60.0 (>51); GLUCOSE, FASTING 78 MG/DL (60-100); MAGNESIUM LEVEL 1.7 MG/DL (1.8-2.4); POTASSIUM SERUM 4.1 MMOL/L (3.5-5.1); SODIUM LEVEL 140 MMOL/L (136-145); TOTAL PROTEIN 5.6 G/DL (5.7-8.2)
[2022-08-22] MEDS ORDERED: MAGNESIUM OXIDE 400MG TAB (MAG-OX) PO ONE (08:20)
[2022-08-22] MEDS ORDERED: ENOXAPARIN 40MG/0.4ML SYRINGE (J1650 PER 10MG) SC SCH (09:00)
[2022-08-22 14:00] VITALS: BP 134/82
[2022-08-23 16:09] LABS: EBV AB TO NUCLEAR ANTIGEN >600.0 U/mL (0.0-17.9); EBV VIRAL CAPSID AG IgG >600.0 U/mL (0.0-17.9); EBV VIRAL CAPSID AG IgM <36.0 U/mL (0.0-35.9)
== END 2022-08-22 14:59 | disposition home or self-care (01) | DRG 54 ==
LOC: M ED 12:24 → M ED INP 22:04 → M MSPAV 23:04
PROVIDERS: ADMIT Family Medicine; ATTEND Family Medicine
DX: G43.109 Migraine with aura, not intractable, without status migrainosus (principal); F17.200 Nicotine dependence, unspecified, uncomplicated; R42 Dizziness and giddiness; K21.9 Gastro-esophageal reflux disease without esophagitis; K57.30 Diverticulosis of large intestine without perforation or abscess without bleeding; Z88.8 Allergy status to other drugs, medicaments and biological substances; Z79.899 Other long term (current) drug therapy; M19.90 Unspecified osteoarthritis, unspecified site

== ENCOUNTER 2023-03-05 17:08 | Emergency (ER) | payer OTHER ==
[~2023-03-05] VITALS: Ht 175.3 cm; Wt 95.5 kg
[~2023-03-05 17:08] MED LIST changes: -OSTE1TAB2 PO
[2023-03-05 17:09] VITALS: BP 138/82; TEMP 99; O2SAT 98
[2023-03-05] MEDS ORDERED: OSTE1TAB2 PO (17:58)
[2023-03-05] MEDS ORDERED: NORT50CA PO (17:58)
== END 2023-03-05 22:06 | disposition left against medical advice (07) ==
LOC: M ED 17:08
DX: Z53.21 Procedure and treatment not carried out due to patient leaving prior to being seen by health care provider (principal)

== ENCOUNTER → 2023-03-05 | Outpatient (REF) | payer OTHER ==
[~2023-03-05] MED LIST changes: +ERGO500029 PO; +OMEP-173 PO; +OSTE1TAB2 PO
== END ==
LOC: M SFHCPLAZ 16:59
PROVIDERS: ATTEND Student in an Organized Health Care Education/Training Program
DX: N30.00 Acute cystitis without hematuria (principal)

== ENCOUNTER 2023-03-06 14:16 | Emergency (ER) | payer OTHER ==
[~2023-03-06] VITALS: Ht 175.3 cm; Wt 94.7 kg
[2023-03-06] MEDS ORDERED: MORPHINE 2 MG/ML 1ML VIAL IV ONE ×2 (20:00→23:30)
[2023-03-06] MEDS: GASTROGRAFIN SOLUTION 30ML PO SCH ×2 (20:07→20:48)
[2023-03-06 20:11] LABS: BASO % 0.5 % (0.0-1.0); EOS # 0.2 10^3/uL (0.0-0.5); EOS % 2.1 % (0.0-3.0); HEMATOCRIT 45.8 % (36.0-47.0); LYMPH % 24.2 % (24.0-44.0); MEAN CORPUSCULAR HEMOGLOBIN 30.7 pg (27.0-33.0); MEAN CORPUSCULAR HGB CONC 32.8 g/dl (32.0-36.5); MEAN CORPUSCULAR VOLUME 93.9 fl (80.0-96.0); MONO # 0.9 10^3/uL (0.0-0.8); MONO % 11.2 % (2.0-8.0); NEUTROPHILS # 5.2 10^3/uL (1.5-8.5); NEUTROPHILS % 61.6 % (36.0-66.0); PLATELET COUNT, AUTOMATED 325 10^3/uL (150-450); RED BLOOD COUNT 4.88 10^6/uL (4.00-5.40); WHITE BLOOD COUNT 8.4 10^3/uL (4.0-10.0)
[2023-03-06 20:42] LABS: LIPASE 56 U/L (12-53)
[2023-03-06 21:20] LABS: HEPATITIS B CORE ANTIBODY IGM NEGATIVE (NEGATIVE); HEPATITIS C VIRUS ABY INDEX 0.12 INDEX (<0.8)
[2023-03-06 21:23] LABS: ALBUMIN 3.3 G/DL (3.2-5.2); ALKALINE PHOSPHATASE 225 U/L (46-116); ALT/SGPT 686 U/L (7.0-40); AST/SGOT 747 U/L (<34); BILIRUBIN,DIRECT 0.9 MG/DL (<0.4); BILIRUBIN,TOTAL 1.5 MG/DL (0.3-1.2); TOTAL PROTEIN 6.1 G/DL (5.7-8.2)
[2023-03-06] MEDS ORDERED: ISOVUE-370 76% 100ML VIAL As Ordered ONE (21:52)
[2023-03-06] MEDS ORDERED: AUGMENTIN 875 MG TAB PO ONE (23:30)
[2023-03-07] MEDS ORDERED: PANTOPRAZOLE 40MG VIAL IV ONE (02:00)
[2023-03-07 06:58] VITALS: BP 100/67; TEMP 97.7; O2SAT 97
== END 2023-03-07 07:03 | disposition short-term general hospital (02) ==
LOC: M ED 14:16
DX: K57.32 Diverticulitis of large intestine without perforation or abscess without bleeding (principal); R74.01 Elevation of levels of liver transaminase levels; K76.0 Fatty (change of) liver, not elsewhere classified; K21.9 Gastro-esophageal reflux disease without esophagitis; G43.909 Migraine, unspecified, not intractable, without status migrainosus; Z87.442 Personal history of urinary calculi; Z91.048 Other nonmedicinal substance allergy status; Z79.83 Long term (current) use of bisphosphonates; Z79.899 Other long term (current) drug therapy
CPT/HCPCS: 71260; 74177; 76705; 80047; 80076; 81001; 83690; 85025; 86705; 86709; 86803; 87340; 96374; 96375; 99284; C9113; Q9963; Q9967

== ENCOUNTER → 2023-03-06 | Outpatient (CLI) | payer OTHER ==
[~2023-03-06] MED LIST changes: +OSTE1TAB2 PO
[2023-03-06 12:10] LABS: BASO # 0.1 10^3/uL (0.0-0.2); BASO % 0.5 % (0.0-1.0); EOS # 0.2 10^3/uL (0.0-0.5); EOS % 2.1 % (0.0-3.0); HEMOGLOBIN 15.6 g/dl (12.0-15.5); LYMPH # 1.9 10^3/uL (1.5-5.0); LYMPH % 19.8 % (24.0-44.0); MEAN CORPUSCULAR HGB CONC 33.2 g/dl (32.0-36.5); MEAN CORPUSCULAR VOLUME 93.3 fl (80.0-96.0); MONO # 1.1 10^3/uL (0.0-0.8); MONO % 11.5 % (2.0-8.0); NEUTROPHILS # 6.2 10^3/uL (1.5-8.5); NEUTROPHILS % 65.9 % (36.0-66.0); PLATELET COUNT, AUTOMATED 356 10^3/uL (150-450); RED BLOOD COUNT 5.04 10^6/uL (4.00-5.40); WHITE BLOOD COUNT 9.4 10^3/uL (4.0-10.0)
[2023-03-06 12:21] LABS: ERYTHROCYTE SEDIMENTATION RATE 16 mm/hr (0-30)
[2023-03-06 12:39] LABS: LIPASE 28 U/L (12-53)
[2023-03-06 12:41] LABS: ALBUMIN 3.3 G/DL (3.2-5.2); ALKALINE PHOSPHATASE 148 U/L (46-116); ALT/SGPT 434 U/L (7.0-40); AST/SGOT 550 U/L (<34); BILIRUBIN,TOTAL 0.9 MG/DL (0.3-1.2); BLOOD UREA NITROGEN 8 MG/DL (9-23); CARBON DIOXIDE LEVEL 30 MMOL/L (20-31); CHLORIDE LEVEL 104 MMOL/L (98-107); GLOMERULAR FILTRATION RATE > 60.0 (>51); GLUCOSE, FASTING 85 MG/DL (60-100); POTASSIUM SERUM 4.5 MMOL/L (3.5-5.1); SODIUM LEVEL 140 MMOL/L (136-145); TOTAL PROTEIN 6.2 G/DL (5.7-8.2)
== END ==
LOC: M LAB 11:26
PROVIDERS: ATTEND Student in an Organized Health Care Education/Training Program
DX: R10.84 Generalized abdominal pain (principal)

== ENCOUNTER → 2023-03-15 | Outpatient (CLI) | payer OTHER ==
[2023-03-15 08:20] LABS: BASO # 0.1 10^3/uL (0.0-0.2); BASO % 0.6 % (0.0-1.0); EOS # 0.5 10^3/uL (0.0-0.5); EOS % 4.8 % (0.0-3.0); HEMATOCRIT 49.5 % (36.0-47.0); HEMOGLOBIN 16.4 g/dl (12.0-15.5); LYMPH # 2.9 10^3/uL (1.5-5.0); LYMPH % 30.9 % (24.0-44.0); MEAN CORPUSCULAR HEMOGLOBIN 31.1 pg (27.0-33.0); MEAN CORPUSCULAR HGB CONC 33.1 g/dl (32.0-36.5); MEAN CORPUSCULAR VOLUME 93.9 fl (80.0-96.0); MONO # 0.7 10^3/uL (0.0-0.8); MONO % 7.1 % (2.0-8.0); NEUTROPHILS # 5.3 10^3/uL (1.5-8.5); NEUTROPHILS % 56.3 % (36.0-66.0); PLATELET COUNT, AUTOMATED 411 10^3/uL (150-450); RED BLOOD COUNT 5.27 10^6/uL (4.00-5.40); WHITE BLOOD COUNT 9.4 10^3/uL (4.0-10.0)
[2023-03-15 08:52] LABS: ALBUMIN 3.6 G/DL (3.2-5.2); ALKALINE PHOSPHATASE 149 U/L (46-116); ALT/SGPT 66 U/L (7.0-40); AST/SGOT 9 U/L (<34); BILIRUBIN,TOTAL 0.5 MG/DL (0.3-1.2); BLOOD UREA NITROGEN 12 MG/DL (9-23); CALCIUM LEVEL 9.5 MG/DL (8.5-10.1); CARBON DIOXIDE LEVEL 30 MMOL/L (20-31); CHLORIDE LEVEL 104 MMOL/L (98-107); CREATININE FOR GFR 0.74 MG/DL (0.55-1.30); GLOMERULAR FILTRATION RATE > 60.0 (>51); GLUCOSE, FASTING 98 MG/DL (60-100); POTASSIUM SERUM 4.4 MMOL/L (3.5-5.1); SODIUM LEVEL 140 MMOL/L (136-145); TOTAL PROTEIN 6.7 G/DL (5.7-8.2)
== END ==
LOC: M LAB 08:00
PROVIDERS: ATTEND Student in an Organized Health Care Education/Training Program
DX: R10.84 Generalized abdominal pain (principal); K57.32 Diverticulitis of large intestine without perforation or abscess without bleeding; K76.0 Fatty (change of) liver, not elsewhere classified

== ENCOUNTER → 2023-05-16 | Outpatient (CLI) | payer OTHER ==
[2023-05-16 12:13] LABS: ALBUMIN 3.8 G/DL (3.2-5.2); ALKALINE PHOSPHATASE 78 U/L (46-116); ALT/SGPT 13 U/L (7.0-40); AST/SGOT 10 U/L (<34); BILIRUBIN,TOTAL 0.5 MG/DL (0.3-1.2); BLOOD UREA NITROGEN 8 MG/DL (9-23); CALCIUM LEVEL 9.3 MG/DL (8.5-10.1); CARBON DIOXIDE LEVEL 28 MMOL/L (20-31); CHLORIDE LEVEL 106 MMOL/L (98-107); CREATININE FOR GFR 0.73 MG/DL (0.55-1.30); GLOMERULAR FILTRATION RATE > 60.0 (>51); GLUCOSE, FASTING 91 MG/DL (60-100); POTASSIUM SERUM 4.5 MMOL/L (3.5-5.1); SODIUM LEVEL 142 MMOL/L (136-145); TOTAL PROTEIN 6.6 G/DL (5.7-8.2)
== END ==
LOC: M LAB 11:04
PROVIDERS: ATTEND Student in an Organized Health Care Education/Training Program
DX: K76.0 Fatty (change of) liver, not elsewhere classified (principal)

== ENCOUNTER → 2024-02-05 | Outpatient (CLI) | payer OTHER | LOC: M RAD 17:42 | PROVIDERS: ATTEND Student in an Organized Health Care Education/Training Program | DX: R10.9 Unspecified abdominal pain (principal); Z53.9 Procedure and treatment not carried out, unspecified reason ==

== ENCOUNTER → 2024-02-05 | Outpatient (CLI) | payer OTHER ==
[~2024-02-05] MED LIST changes: +GASTROGRAFIN SOLUTION 30ML As Ordered ONE; +ISOVUE-370 76% 100ML VIAL As Ordered ONE
== END ==
LOC: M RAD 12:51
PROVIDERS: ATTEND Student in an Organized Health Care Education/Training Program
DX: R10.9 Unspecified abdominal pain (principal); K76.0 Fatty (change of) liver, not elsewhere classified
CPT/HCPCS: 74177; Q9963; Q9967

== ENCOUNTER → 2024-02-13 | Outpatient (CLI) | payer OTHER ==
[~2024-02-13] MED LIST changes: -GASTROGRAFIN SOLUTION 30ML As Ordered ONE; -ISOVUE-370 76% 100ML VIAL As Ordered ONE
[2024-02-13 13:48] LABS: BASO % 0.3 % (0.0-1.0); EOS # 0.3 10^3/uL (0.0-0.5); EOS % 2.8 % (0.0-3.0); HEMATOCRIT 48.3 % (36.0-47.0); HEMOGLOBIN 16.1 g/dl (12.0-15.5); LYMPH # 3.3 10^3/uL (1.5-5.0); LYMPH % 27.9 % (24.0-44.0); MEAN CORPUSCULAR HEMOGLOBIN 31.6 pg (27.0-33.0); MEAN CORPUSCULAR HGB CONC 33.3 g/dl (32.0-36.5); MEAN CORPUSCULAR VOLUME 94.9 fl (80.0-96.0); MONO # 0.7 10^3/uL (0.0-0.8); MONO % 5.6 % (2.0-8.0); NEUTROPHILS # 7.5 10^3/uL (1.5-8.5); NEUTROPHILS % 63.1 % (36.0-66.0); PLATELET COUNT, AUTOMATED 356 10^3/uL (150-450); RED BLOOD COUNT 5.09 10^6/uL (4.00-5.40); WHITE BLOOD COUNT 11.9 10^3/uL (4.0-10.0)
[2024-02-13 13:57] LABS: ERYTHROCYTE SEDIMENTATION RATE 14 mm/hr (0-30)
[2024-02-13 14:10] LABS: LIPASE 30 U/L (12-53)
[2024-02-13 14:11] LABS: C REACTIVE PROTEIN QUANTITATIV < 0.40 MG/DL (<1.0)
[2024-02-13 14:12] LABS: ALBUMIN 3.7 G/DL (3.2-5.2); ALKALINE PHOSPHATASE 85 U/L (46-116); ALT/SGPT 29 U/L (7.0-40); AST/SGOT 9 U/L (<34); BILIRUBIN,TOTAL 0.3 MG/DL (0.3-1.2); BLOOD UREA NITROGEN 12 MG/DL (9-23); CALCIUM LEVEL 9.3 MG/DL (8.5-10.1); CARBON DIOXIDE LEVEL 28 MMOL/L (20-31); CHLORIDE LEVEL 111 MMOL/L (98-107); CHOLESTEROL LEVEL 204 MG/DL (<200); CHOLESTEROL RISK RATIO 5.29 (<5); CREATININE FOR GFR 0.68 MG/DL (0.55-1.30); GLOMERULAR FILTRATION RATE > 60.0 (>51); GLUCOSE, FASTING 84 MG/DL (60-100); HDL CHOLESTEROL 38.5 MG/DL (>40); LDL CHOLESTEROL 133.9 MG/DL (<100); NON-HDL-C 165.5 MG/DL; POTASSIUM SERUM 4.9 MMOL/L (3.5-5.1); SODIUM LEVEL 142 MMOL/L (136-145); TOTAL PROTEIN 6.5 G/DL (5.7-8.2); TRIGLYCERIDES LEVEL 158 MG/DL (<150)
[2024-02-13 14:13] LABS: THYROID STIMULATING HORMONE 1.289 uIU/ML (0.55-4.78)
[2024-02-13 14:14] LABS: FREE T4 1.02 NG/DL (0.89-1.76)
== END ==
LOC: M LAB 12:30
PROVIDERS: ATTEND Student in an Organized Health Care Education/Training Program
DX: K57.32 Diverticulitis of large intestine without perforation or abscess without bleeding (principal); E78.5 Hyperlipidemia, unspecified

== ENCOUNTER → 2024-02-15 | Outpatient (CLI) | payer OTHER ==
[2024-02-15 10:35] LABS: ALBUMIN 3.7 G/DL (3.2-5.2); ALKALINE PHOSPHATASE 93 U/L (46-116); ALT/SGPT 31 U/L (7.0-40); AST/SGOT 15 U/L (<34); BILIRUBIN,DIRECT < 0.1 MG/DL (<0.4); BILIRUBIN,TOTAL 0.3 MG/DL (0.3-1.2); IMMUNOGLOBULIN A 272.3 MG/DL (40-350); IRON (FE) 84 UG/DL (50-170); PERCENT SATURATION 27.2 % (13.2-45.0); TOTAL IRON BINDING CAPACITY 309 UG/DL (250-425); TOTAL PROTEIN 6.5 G/DL (5.7-8.2)
[2024-02-15 10:55] LABS: HEPATITIS B SURFACE ANTIGEN NEGATIVE (NEGATIVE)
[2024-02-15 11:16] LABS: HEPATITIS B CORE ANTIBODY IGM NEGATIVE (NEGATIVE); HEPATITIS C VIRUS ABY INDEX < 0.02 INDEX (<0.8)
[2024-02-18 14:07] LABS: TISSUE TRANSGLUTAMINASE IgA < 1.0 U/mL (<15.0)
[2024-02-18 15:17] LABS: ANA SCREEN, IFA NEGATIVE (NEGATIVE)
[2024-02-18 21:42] LABS: ANCA SCREEN Negative (Negative)
== END ==
LOC: M LAB 09:14
PROVIDERS: ATTEND Internal Medicine Gastroenterology
DX: R74.01 Elevation of levels of liver transaminase levels (principal); A09 Infectious gastroenteritis and colitis, unspecified

== ENCOUNTER 2024-04-25 07:10 | Day surgery (SDC) | payer OTHER ==
[~2024-04-25] VITALS: Ht 175.3 cm; Wt 90.5 kg
[~2024-04-25 07:10] MED LIST changes: +EZET10TA21 PO; +GABA-1490 PO; +GABA-1635 PO; -GABA600T4 PO; -GABA800T4 PO; +PREG75CA3 PO; +primrose
[2024-04-25] MEDS ORDERED: GLYCOPYRROLATE INJ 0.2 MG/ML 2 ML VIAL As Ordered ONE (07:37)
[2024-04-25] MEDS ORDERED: propofoL 200 MG/20 ML VIAL As Ordered ONE (07:37)
[2024-04-25] MEDS: NS 1,000 ML IV ONE (07:54)
[2024-04-25 09:22] VITALS: TEMP 97.6
[2024-04-25 09:40] VITALS: BP 111/78; O2SAT 98
== END 2024-04-25 09:53 | disposition home or self-care (01) ==
LOC: M OPP 07:10
PROVIDERS: ATTEND Internal Medicine Gastroenterology
DX: D12.0 Benign neoplasm of cecum (principal); D12.4 Benign neoplasm of descending colon; K57.32 Diverticulitis of large intestine without perforation or abscess without bleeding; K57.30 Diverticulosis of large intestine without perforation or abscess without bleeding; E78.5 Hyperlipidemia, unspecified; K76.0 Fatty (change of) liver, not elsewhere classified; K21.9 Gastro-esophageal reflux disease without esophagitis; M19.90 Unspecified osteoarthritis, unspecified site; M79.7 Fibromyalgia; G43.909 Migraine, unspecified, not intractable, without status migrainosus; G47.33 Obstructive sleep apnea (adult) (pediatric); E55.9 Vitamin D deficiency, unspecified; F17.210 Nicotine dependence, cigarettes, uncomplicated; F17.290 Nicotine dependence, other tobacco product, uncomplicated; Z99.89 Dependence on other enabling machines and devices; Z88.1 Allergy status to other antibiotic agents; Z88.8 Allergy status to other drugs, medicaments and biological substances; Z91.048 Other nonmedicinal substance allergy status; Z79.899 Other long term (current) drug therapy; Z85.828 Personal history of other malignant neoplasm of skin
CPT/HCPCS: 45385; 88305; J1596

== ENCOUNTER → 2024-05-09 | Outpatient (CLI) | payer OTHER | LOC: M WHC 11:38 | PROVIDERS: ATTEND Student in an Organized Health Care Education/Training Program | DX: R22.1 Localized swelling, mass and lump, neck (principal); E04.2 Nontoxic multinodular goiter ==

== ENCOUNTER → 2025-02-24 | Outpatient (CLI) | payer OTHER | LOC: M RAD 07:40 | PROVIDERS: ATTEND Student in an Organized Health Care Education/Training Program | DX: R91.8 Other nonspecific abnormal finding of lung field (principal); Z90.49 Acquired absence of other specified parts of digestive tract; F17.210 Nicotine dependence, cigarettes, uncomplicated ==